=== PATIENT | male | born 1955 | race Caucasian/White ===

== ENCOUNTER 2016-11-15 14:04 | Observation (INO) ==
[2016-11-15] MEDS ORDERED: Albuterol 2.5 MG/3 ML NEBULIZER IH ONE (14:11)
[2016-11-15] MEDS ORDERED: Ipratropium/Albuterol Neb 3 ML IH ONE (14:11)
[2016-11-15] MEDS ORDERED: methylPREDNISolone 125 MG/2 ML VIAL IVP ONE (14:12)
[2016-11-15] MEDS ORDERED: Albuterol 2.5 MG/3 ML NEBULIZER ONE ×2 (14:15→16:22)
[2016-11-15] MEDS ORDERED: Ipratropium/Albuterol Neb 3 ML ONE ×2 (14:15→16:22)
--- NOTE | 2016-11-15 14:15 | Emergency Department Note ---
Disposition Clinical Impression: COPD exacerbation Pneumonia Qualifiers: Pneumonia type: due to unspecified organism Laterality: left Lung location: unspecified part of lung Qualified Code(s): J18.9 - Pneumonia, unspecified organism Disposition: Admitted As Inpatient Condition: Good Referrals: Dayday Ayala DO [Primary Care Provider] - Forms: ED Satisfaction Letter Time of Disposition: 15:41 SOB HPI - General Chief Complaint: ED Shortness of Breath/Dyspnea Stated Complaint: SOB Time Seen by Provider: 11/15/16 14:11 Source: patient Mode of arrival: ambulatory Limitations: no limitations Nursing Notes Reviewed: Yes Vital Signs Reviewed: Yes - History of Present Illness 60-year-old white male with a history of COPD who presents with a three-day history of cough and increased difficulty breathing. He states his cough is productive of some white sputum. He denies fever. No chest pain. He smokes a pack of cigarettes a day. He wears 3 L of oxygen continuously. Pt Subjective Complaint: shortness of breath, cough Onset (ago): day(s) (3) Context: recent illness Severity: moderate Consistency/Duration: constant Improves with: oxygen, rest Worsens with: exertion, coughing Known history of: COPD, asthma Associated symptoms: Reports: denies other symptoms Treatment prior to arrival: oxygen, bronchodilator Cough present: Yes Cough Description: Involuntary Cough Frequency: Intermittent Sputum production: Yes Sputum Amount: Scant Sputum Color: White - Related Data Home oxygen amount: 3 liters Home Medications Medication Instructions Recorded Confirmed Albuterol Neb [Proventil Neb] 2.5 mg IH Q4HR PRN 05/23/15 11/15/16 Albuterol Sulfate [Albuterol 2 puff IH Q4H PRN 05/23/15 11/15/16 Inhaler] Aspirin [Adult Low Dose Aspirin EC] 81 mg PO DAILY 05/23/15 11/15/16 Gabapentin [Neurontin] 800 mg PO TID 05/23/15 11/15/16 Hydrocodone/Acetaminophen [[place] 1 tab PO Q6H PRN 05/23/15 11/15/16 10-325 Tablet] Levothyroxine [Synthroid] 50 mcg PO DAILY 05/23/15 11/15/16 Loratadine [Claritin] 10 mg PO DAILY 05/23/15 11/15/16 Melatonin [Melatin] 3 mg PO HS 05/23/15 11/15/16 [place]-3S/Dha/Epa/Fish Oil [Fish 1 each PO DAILY 05/23/15 11/15/16 Oil 1,200 mg Softgel] Tiotropium [Spiriva] 18 mcg IH DAILY 05/23/15 11/15/16 Topiramate [Topamax] 25 mg PO HS 05/23/15 11/15/16 Cholecalciferol (D-3) [Vitamin D] 2,000 unit PO DAILY 06/04/16 11/15/16 Docusate [Colace] 100 mg PO DAILY PRN 06/04/16 11/15/16 diazePAM [Valium] 5 mg PO HS 06/04/16 11/15/16 Furosemide [Lasix] 40 mg PO DAILY 11/15/16 11/15/16 Allergies Allergy/AdvReac Type Severity Reaction Status Date / Time tramadol AdvReac Unknown TINGLING Verified 06/04/16 16:44 acetaminophen AdvReac Itching Verified 06/04/16 16:44 morphine AdvReac Hallucinati Verified 06/04/16 16:44 ng Oxycodone [From Percocet] AdvReac Anaphylaxis Verified 06/04/16 16:44 All systems ED: reviewed and negative except as stated. Constitutional: Denies: fever, chills Eyes: Denies: eye discharge ENT ED: Denies: ear pain, throat pain Cardiovascular: Denies: chest pain Respiratory: Reports: cough, dyspnea, wheezes, sputum production Gastrointestinal: Denies: abdominal pain, nausea, vomiting Genitourinary: Denies: urgency, dysuria, frequency Past Medical History - Past Medical History Medical history: Reports: COPD, diabetes, hyperlipidemia, thyroid disease Psychiatric history: Reports: no psych history - Social History Smoking Status: Current every day smoker Smokeless Tobacco Status: No Alcohol use: Reports: none Drug use: Reports: none Physical Exam - General Limitations: no limitations General appearance: alert, in no apparent distress - Head Head exam: atraumatic, normocephalic - Eye Eye exam: Present: PERRL, EOMI. Absent: scleral icterus, conjunctival injection - ENT ENT exam: normal oropharynx, mucous membranes moist, TM's normal bilaterally - Neck Neck exam: Present: normal inspection, full ROM, trachea midline. Absent: tenderness, lymphadenopathy - Respiratory Respiratory exam: Present: wheezes (Water bilateral expiratory), prolonged expiratory phase. Absent: respiratory distress, accessory muscle use - Cardiovascular Cardiovascular exam: Present: regular rate, normal rhythm, normal heart sounds - Abdominal Exam Abdominal exam: Present: soft, Non-Tender, other (Please). Absent: tenderness, distention, guarding - Extremities Exam Extremities exam: Present: normal inspection, other (1+ pitting pretibial edema) . Absent: calf tenderness - Neurological Exam Neurological exam: Present: alert, oriented X3, normal gait. Absent: motor sensory deficit - Psychiatric Psychiatric exam: Present: normal affect, normal mood - Skin Skin exam: Present: warm, dry, intact. Absent: cyanosis, diaphoresis Course - Reevaluation(s) Reevaluation #1: Patient clinically is improved. His O2 saturations are between 88 and 92% on 3 L. He is moving air better. I discussed with him his workup and clinical findings. He is agreeable with admission. I spoke with Dr. Gregory. He has accepted the patient for admission. Time: 15:39 Vital Signs Temperature 100.0 F H 11/15/16 14:06 Pulse Rate 79 11/15/16 14:06 Respiratory Rate 20 11/15/16 14:06 Blood Pressure 135/69 11/15/16 14:06 O2 Sat by Pulse Oximetry 83 11/15/16 14:06 Temperature 100.0 F H 11/15/16 14:06 Pulse Rate 79 11/15/16 14:06 Respiratory Rate 22 11/15/16 14:18 Blood Pressure 135/69 11/15/16 14:06 O2 Sat by Pulse Oximetry 84 11/15/16 14:18 Oxygen Delivery Oxygen Delivery Nasal Cannula Shortness of Breath/Dyspnea - Differential Diagnosis Likely: acute exacerbation of chronic obstructive airways disease, congestive heart failure, pneumonia, asthma with exacerbation, pulmonary embolism, pneumothorax, arrhythmia - Lab Data Lab results reviewed: Yes I reviewed the patient's lab results. Result diagrams: 11/15/16 14:24 11/15/16 14:24 Lab Results 11/15/16 11/15/16 11/15/16 Range/Units 14:24 14:24 14:24 WBC 10.2 (4.3-11.1) K/mcL RBC 4.35 (4.19-5.50) M/mcL Hgb 12.0 L (12.9-16.9) g/dL Hct 39.2 (37.5-50.1) % MCV 90.1 (83.0-100.0) fL MCH 27.6 L (28.0-33.3) pg MCHC 30.6 L (31.6-35.5) g/dL RDW 16.3 H (11.5-14.5) % Plt Count 255 (140-400) K/mcL MPV 8.8 L (9.4-12.4) fL Immature Gran % 0.4 (0-4) % Seg Neutrophils % 68.0 % Lymphocytes % 19.6 % Monocytes % 10.5 % Eosinophils % 1.1 % Basophils % 0.4 % Neutrophils # 7.0 (1.6-8.9) K/mcL Lymphocytes # 2.0 (0.6-4.6) K/mcL Monocytes # 1.1 (0.0-1.3) K/mcL Eosinophils # 0.1 (0.0-0.6) K/mcL Basophils # 0.0 (0.0-0.2) K/mcL Nucleated RBCs/100 WBC 0.4 H (0) /100 WBC VBG Lactic Acid (0.5-2.2) mmol/L Sodium 136 (136-145) mEq/L Potassium 3.6 (3.5-4.5) mEq/L Chloride 90 L (98-109) mEq/L Carbon Dioxide 33 H (19-29) mEq/L BUN 14 (8-26) mg/dL Creatinine 1.37 H (0.72-1.25) mg/dL Est GFR ( Amer) > 60 (> 60) Est GFR (Non-Af Amer) 53 L (> 60) BUN/Creatinine Ratio 10 (6-26) Glucose 188 H (70-99) mg/dL Calculated Osmolality 287 (280-300) Calcium 9.4 (8.6-10.8) mg/dL Total Bilirubin 0.3 (0.2-1.2) mg/dL AST 19 (5-34) Units/L ALT 22 (0-55) Units/L Alkaline Phosphatase 85 (38-126) Units/L Troponin I 0.04 H* (0-0.03) ng/mL B-Natriuretic Peptide (0-100) pg/mL Serum Total Protein 6.5 (6.0-8.3) g/dL Albumin 3.0 L (3.5-5.0) g/dL Globulin 3.5 (2.4-3.5) g/dL Albumin/Globulin Ratio 0.9 L (1.1-2.2) 11/15/16 11/15/16 Range/Units 14:24 14:24 WBC (4.3-11.1) K/mcL RBC (4.19-5.50) M/mcL Hgb (12.9-16.9) g/dL Hct (37.5-50.1) % MCV (83.0-100.0) fL MCH (28.0-33.3) pg MCHC (31.6-35.5) g/dL RDW (11.5-14.5) % Plt Count (140-400) K/mcL MPV (9.4-12.4) fL Immature Gran % (0-4) % Seg Neutrophils % % Lymphocytes % % Monocytes % % Eosinophils % % Basophils % % Neutrophils # (1.6-8.9) K/mcL Lymphocytes # (0.6-4.6) K/mcL Monocytes # (0.0-1.3) K/mcL Eosinophils # (0.0-0.6) K/mcL Basophils # (0.0-0.2) K/mcL Nucleated RBCs/100 WBC (0) /100 WBC VBG Lactic Acid 3.7 H (0.5-2.2) mmol/L Sodium (136-145) mEq/L Potassium (3.5-4.5) mEq/L Chloride (98-109) mEq/L Carbon Dioxide (19-29) mEq/L BUN (8-26) mg/dL Creatinine (0.72-1.25) mg/dL Est GFR ( Amer) (> 60) Est GFR (Non-Af Amer) (> 60) BUN/Creatinine Ratio (6-26) Glucose (70-99) mg/dL Calculated Osmolality (280-300) Calcium (8.6-10.8) mg/dL Total Bilirubin (0.2-1.2) mg/dL AST (5-34) Units/L ALT (0-55) Units/L Alkaline Phosphatase (38-126) Units/L Troponin I (0-0.03) ng/mL B-Natriuretic Peptide 760 H (0-100) pg/mL Serum Total Protein (6.0-8.3) g/dL Albumin (3.5-5.0) g/dL Globulin (2.4-3.5) g/dL Albumin/Globulin Ratio (1.1-2.2) - Radiology Data Radiology results reviewed: Yes I reviewed the patient's radiology results. ITS Impressions Chest X-Ray 11/15/16 14:11 IMPRESSION: Left perihilar airspace disease which may be due to pneumonia although follow-up to ensure resolution is recommended as a neoplastic etiology cannot be excluded. A chest x-ray in 3 weeks is recommended. D/ / Edmund Baca MD / Edmund Baca MD Interpreting Provider: Edmund Baca MD - EKG Data EKG attestation: Yes I reviewed and interpreted this EKG. EKG results narrative: Sinus rhythm, rate of 78, left atrial enlargement, nonspecific ST-T changes. Rhythm strip shows sinus rhythm with rate of 78, DC interval 138 ms, QRS 90 ms with no other ectopy as interpreted by me.
[2016-11-15 14:31] LABS: Basophils % 0.4 %; Eosinophils # 0.1 K/mcL (0.0-0.6); Eosinophils % 1.1 %; Hematocrit 39.2 % (37.5-50.1); Immature Granulocytes % 0.4 % (0-4); Lymphocytes % 19.6 %; Mean Corpuscular HGB Conc 30.6 g/dL (31.6-35.5); Mean Corpuscular Hemoglobin 27.6 pg (28.0-33.3); Mean Corpuscular Volume 90.1 fL (83.0-100.0); Mean Platelet Volume 8.8 fL (9.4-12.4); Monocytes # 1.1 K/mcL (0.0-1.3); Monocytes % 10.5 %; Nucleated Red Blood Cells 0.4 /100 WBC (0); Platelet Count 255 K/mcL (140-400); Red Blood Count 4.35 M/mcL (4.19-5.50); Red Cell Distribution Width 16.3 % (11.5-14.5)
[2016-11-15 14:49] LABS: Alanine Aminotransferase 22 Units/L (0-55); Albumin/Globulin Ratio 0.9 (1.1-2.2); Alkaline Phosphatase 85 Units/L (38-126); Aspartate Amino Transferase 19 Units/L (5-34); BUN/Creatinine Ratio 10 (6-26); Bilirubin,Total 0.3 mg/dL (0.2-1.2); Blood Urea Nitrogen 14 mg/dL (8-26); Calcium 9.4 mg/dL (8.6-10.8); Carbon Dioxide 33 mEq/L (19-29); Chloride 90 mEq/L (98-109); Globulin 3.5 g/dL (2.4-3.5); Glucose 188 mg/dL (70-99); Osmolality,Calculated 287 (280-300); Potassium 3.6 mEq/L (3.5-4.5); Sodium 136 mEq/L (136-145); Total Protein 6.5 g/dL (6.0-8.3); eGFR For African Americans > 60 (> 60); eGFR For Non-African Americans 53 (> 60)
[2016-11-15] MEDS ORDERED: Azithromycin 500 MG in D5% in Water 250 ML IVPB ONE (15:04)
[2016-11-15] MEDS ORDERED: Naloxone 0.4 MG/ML INJ IVP PRN (16:22)
[2016-11-15] MEDS ORDERED: methylPREDNISolone 125 MG/2 ML VIAL IVP SCH ×2 (16:22→22:30)
--- NOTE | 2016-11-15 19:03 | Internal Med History&Physical ---
Date of Encounter: 11/15/16 Time of Encounter: 18:25 Assessment and Plan (1) Pneumonia Current visit: Yes Status: Acute Chest x-ray showed probable airspace disease but WBC is normal with no left shift seen. We will proceed with CT of chest to further evaluate. He was started on Rocephin, Zithromax, and Solu-Medrol through emergency room. Qualifiers: Pneumonia type: due to unspecified organism Laterality: left Lung location: unspecified part of lung Qualified Code(s): J18.9 - Pneumonia, unspecified organism (2) Anemia Current visit: No Status: Acute We will order anemia testing in a.m. Qualifiers: Anemia type: unspecified type Qualified Code(s): D64.9 - Anemia, unspecified (3) CKD (chronic kidney disease) stage 3, GFR 30-59 ml/min Current visit: Yes Status: Acute Will monitor renal indices. (4) Hypertension Current visit: Yes Status: Chronic He does not know the name of his blood pressure medication. Will monitor BP. Qualifiers: Hypertension type: essential hypertension Qualified Code(s): I10 - Essential (primary) hypertension (5) Hypothyroidism Current visit: Yes Status: Acute We will check TSH in a.m. Qualifiers: Hypothyroidism type: unspecified Qualified Code(s): E03.9 - Hypothyroidism , unspecified (6) Diabetes mellitus Current visit: No Status: Chronic We will check hemoglobin A1c in a.m. 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 Qualifiers: COPD type: unspecified COPD Qualified Code(s): J44.9 - Chronic obstructive pulmonary disease, unspecified (8) Elevated brain natriuretic peptide (BNP) level Current visit: Yes Status: Acute We will give IV Lasix tonight and reevaluate tomorrow morning. Internal Medicine - H&P: HPI Chief complaint: Dyspnea Admitted From: Home Plans for Post Hospital Care: Home History of present illness: Mr. Williamson is a 60 year old male who came to the emergency room from his physician's office where he gone to pick up worker a prescription. He states he became very weak and fell to the floor. He was brought to emergency room and evaluated with CT scan showing left perihilar airspace disease. He was admitted to [facility] floor for ongoing care needs. He denies dyspnea at the present time. His respiratory history is significant for having smoked since age 5 up to 3 packs per day. He has a diagnosis of COPD and states PFTs were done approximately 10 years ago. He wears oxygen at home 24/ except when he smokes. He has been diagnosed with BALBINA but states he cannot tolerate the CPAP/BiPAP mask. Past Med Surg Social Fam HX - Past Medical History Medical history: COPD, hyperlipidemia, thyroid disease Psychiatric history: no psych history - Past Surgical History Surgical History: cholecystectomy - Social History Smoking Status: Current every day smoker Smokeless Tobacco Status: No Alcohol use: none Drug use: none - Family History Father Living Status: Hx Family Cancer: Yes (Lung) Hx Family Endocrine Disorder: Yes (Diabetes) Internal Medicine - H&P: Meds Albuterol Neb [Proventil Neb] 2.5 mg IH Q4HR PRN 05/23/15 [History] Albuterol Sulfate [Albuterol Inhaler] 2 puff IH Q4H PRN 05/23/15 [History] Aspirin [Adult Low Dose Aspirin EC] 81 mg PO DAILY 05/23/15 [History] Gabapentin [Neurontin] 800 mg PO TID 05/23/15 [History] Hydrocodone/Acetaminophen [[place] 10-325 Tablet] 1 tab PO Q6H PRN 05/23/15 [ History] Levothyroxine [Synthroid] 50 mcg PO DAILY 05/23/15 [History] Loratadine [Claritin] 10 mg PO DAILY 05/23/15 [History] Melatonin [Melatin] 3 mg PO HS 05/23/15 [History] [place]-3S/Dha/Epa/Fish Oil [Fish Oil 1,200 mg Softgel] 1 each PO DAILY 05/23/15 [ History] Tiotropium [Spiriva] 18 mcg IH DAILY 05/23/15 [History] Topiramate [Topamax] 25 mg PO HS 05/23/15 [History] Cholecalciferol (D-3) [Vitamin D] 2,000 unit PO DAILY 06/04/16 [History] Docusate [Colace] 100 mg PO DAILY PRN 06/04/16 [History] diazePAM [Valium] 5 mg PO HS 06/04/16 [History] Furosemide [Lasix] 40 mg PO DAILY 11/15/16 [History] Allergies tramadol Adverse Reaction (Unknown, Verified 06/04/16 16:44) TINGLING acetaminophen Adverse Reaction (Verified 06/04/16 16:44) Itching morphine Adverse Reaction (Verified 06/04/16 16:44) Hallucinating Oxycodone [From Percocet] Adverse Reaction (Verified 06/04/16 16:44) Anaphylaxis All Systems PM: A 10-system review of systems was performed and is negative for pertinent findings except as documented above in the HPI. Review of systems: Gen.: He states his weight has been stable the past few months Cardiovascular: He has a history of hypertension but denies MS heart failure angina DVT or pulmonary embolus. He claims he had a heart catheter several years ago at [facility] which showed no significant stenosis. Respiratory: As per history of present illness GI: He has had cholecystectomy. He claims he has NAFLD. He states he has not drunk alcohol in approximately 20 years. 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 He denies other kidney bladder prostate disorders Neurologic: He denies large distribution strokes or seizures Endocrine: He has a history of DM 2. His last hemoglobin A1c was 6.2% on 2015. He has history of hypothyroidism and hyperlipidemia Hematology/oncology: He and anemia on blood work emergency room. He was unaware of this. He denies internal malignancies Psychiatric: He denies anxiety depression or other mental health issues Musk skeletal: He has arthritis but denies gout or other bone joint or muscle disorders. - Constitutional Vitals: Temp Pulse Resp BP Pulse Ox 97.9 F 84 16 143/71 84 11/15/16 17:01 11/15/16 17:01 11/15/16 17:01 11/15/16 17:01 11/15/16 17:01 Exam: Gen.: He is well-developed obese male who appears in no acute distress. He denies dyspnea at this time HEENT: Head is atraumatic and normocephalic. Eyes: EOMI. There is no scleral icterus. Mouth: Mucosa is moist. Neck: Supple and nontender. There is no thyromegaly or adenopathy noted. Heart: Regular without murmurs gallops or ectopics Lungs: No wheezes or crackles are heard. He has diminished breath sounds diffusely. Abdomen: Soft and nontender. No masses or guarding noted. Extremities: There is no cyanosis or clubbing noted. He has trace to 1+ edema of the lower legs and dorsum of the feet bilaterally. Dorsalis pedis and posterior tibial pulses are nonpalpable. Neurologic: Mental status: He is talkative and a good historian. Cranial nerves : Smile is symmetric. Forehead wrinkles bilaterally. Tongue protrudes midline. EOMI. Motor: There is no pronator drift. Cerebellar: Finger to nose is intact bilaterally. Skin: Warm and dry Internal Med - H&P Results - Labs CBC & Chem 7: 11/15/16 14:24 11/15/16 14:24
[2016-11-15] MEDS ORDERED: Furosemide 40 MG in 0.9 % Sodium Chloride 50 ML IVPB SCH (19:30)
[2016-11-15] MEDS ORDERED: Ipratropium/Albuterol Neb 3 ML IH SCH (20:00)
[2016-11-15] MEDS ORDERED: diazePAM 5 MG TABLET PO SCH (21:00)
[2016-11-15] MEDS ORDERED: Gabapentin 400 MG CAPSULE PO SCH ×2 (21:00)
[2016-11-15] MEDS ORDERED: Topiramate 25 MG TABLET PO SCH (21:00)
[2016-11-15] MEDS ORDERED: Melatonin 3 MG TABLET PO SCH (21:00)
[2016-11-15] MEDS: Furosemide 40 MG/4 ML VIAL IVP SCH (21:39)
[2016-11-15] MEDS: Gabapentin 300 MG CAPSULE PO SCH (21:40)
[2016-11-15] MEDS: *HR* HYDROcodone/Acet 10/325 mg TABLET PO PRN (21:53)
[2016-11-16] MEDS: *HR* HYDROcodone/Acet 10/325 mg TABLET PO PRN ×2 (03:59→09:52)
[2016-11-16] MEDS ORDERED: *HR* Enoxaparin 40 MG/0.4 ML SYRINGE SQ SCH (06:00)
[2016-11-16 06:26] LABS: Basophils % 0.1 %; Hematocrit 38.8 % (37.5-50.1); Hemoglobin 11.9 g/dL (12.9-16.9); Lymphocytes # 0.9 K/mcL (0.6-4.6); Lymphocytes % 10.5 %; Mean Corpuscular HGB Conc 30.7 g/dL (31.6-35.5); Mean Corpuscular Hemoglobin 27.5 pg (28.0-33.3); Mean Corpuscular Volume 89.6 fL (83.0-100.0); Mean Platelet Volume 9.4 fL (9.4-12.4); Monocytes # 0.3 K/mcL (0.0-1.3); Monocytes % 4.2 %; Neutrophils # 6.8 K/mcL (1.6-8.9); Nucleated Red Blood Cells 0.6 /100 WBC (0); Platelet Count 262 K/mcL (140-400); Red Blood Count 4.33 M/mcL (4.19-5.50); Red Cell Distribution Width 16.2 % (11.5-14.5); Segmented Neutrophils % 84.2 %
[2016-11-16] MEDS ORDERED: Levothyroxine 25 MCG TABLET PO SCH (06:30)
[2016-11-16 06:43] LABS: BUN/Creatinine Ratio 15 (6-26); Blood Urea Nitrogen 17 mg/dL (8-26); Calcium 9.3 mg/dL (8.6-10.8); Carbon Dioxide 37 mEq/L (19-29); Chloride 89 mEq/L (98-109); Glucose 216 mg/dL (70-99); Osmolality,Calculated 294 (280-300); Potassium 4.2 mEq/L (3.5-4.5); Sodium 138 mEq/L (136-145); eGFR For African Americans > 60 (> 60); eGFR For Non-African Americans > 60 (> 60)
[2016-11-16 07:04] LABS: Thyroid Stimulating Hormone 0.758 mcIU/mL (0.350-4.840)
[2016-11-16] MEDS: Gabapentin 300 MG CAPSULE PO SCH (08:58)
[2016-11-16] MEDS: Furosemide 40 MG/4 ML VIAL IVP SCH (08:58)
[2016-11-16] MEDS ORDERED: DHA PO SCH (09:00)
[2016-11-16] MEDS ORDERED: Aspirin Enteric Coated 325 MG Tablet PO SCH (09:00)
[2016-11-16] MEDS ORDERED: Furosemide 40 MG TABLET PO SCH (09:00)
[2016-11-16] MEDS ORDERED: EPA PO SCH (09:00)
[2016-11-16] MEDS ORDERED: Loratadine 10 MG TABLET PO SCH (09:00)
[2016-11-16] MEDS ORDERED: Aspirin Enteric Coated 81 MG Tablet PO SCH (09:00)
[2016-11-16] MEDS ORDERED: Cholecalciferol (D-3) 1,000 UNIT TABLET PO SCH (09:00)
[2016-11-16] MEDS ORDERED: FISH OIL PO SCH (09:00)
[2016-11-16] MEDS ORDERED: OMEGA PO SCH (09:00)
[2016-11-16] MEDS ORDERED: *HR* Dextrose 50 % in Water (Syg) 50 ML SYRINGE IVP PRN (09:40)
[2016-11-16] MEDS ORDERED: Dextrose Gel 15 GM PO PRN ×2 (09:40)
[2016-11-16] MEDS ORDERED: D5% in Water 1,000 ML IVC PRN (09:40)
[2016-11-16 10:11] VITALS: BP 128/62
--- NOTE | 2016-11-16 10:25 | Discharge Summary ---
Date of Encounter: 11/16/16 Time of Encounter: 10:10 - Discharge Diagnosis (1) Pneumonia Priority: Primary Status: Acute Qualifiers: Pneumonia type: due to unspecified organism Laterality: left Lung location: unspecified part of lung Qualified Code(s): J18.9 - Pneumonia, unspecified organism (2) Anemia Priority: Secondary Status: Acute Qualifiers: Anemia type: unspecified type Qualified Code(s): D64.9 - Anemia, unspecified (3) CKD (chronic kidney disease) stage 3, GFR 30-59 ml/min Priority: Secondary Status: Chronic (4) Hypertension Priority: Secondary Status: Chronic Qualifiers: Hypertension type: essential hypertension Qualified Code(s): I10 - Essential (primary) hypertension (5) Hypothyroidism Priority: Secondary Status: Chronic Qualifiers: Hypothyroidism type: unspecified Qualified Code(s): E03.9 - Hypothyroidism , unspecified (6) Diabetes mellitus Priority: Secondary Status: Chronic Qualifiers: Diabetes mellitus type: type 2 Diabetes mellitus complication status: with unspecified complications 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 insulin use: without prison use Qualified Code(s): E11.8 - Type 2 diabetes mellitus with unspecified complications (7) COPD (chronic obstructive pulmonary disease) Priority: Secondary Status: Chronic Qualifiers: COPD type: unspecified COPD Qualified Code(s): J44.9 - Chronic obstructive pulmonary disease, unspecified (8) Elevated brain natriuretic peptide (BNP) level Priority: Secondary Status: Acute - Discharge Medications Prescriptions: Cefuroxime PO [Ceftin] 500 mg PO Q12HR #6 tablet Azithromycin [Zithromax] 250 mg PO DAILY #3 tablet Lactobacillus [Culturelle] 1 each PO BID #6 cap.sprink Home Medications: Albuterol Neb [Proventil Neb] 2.5 mg IH Q4HR PRN 05/23/15 [History] Albuterol Sulfate [Albuterol Inhaler] 2 puff IH Q4H PRN 05/23/15 [History] Aspirin [Adult Low Dose Aspirin EC] 325 mg PO DAILY 05/23/15 [History] Gabapentin [Neurontin] 800 mg PO TID 05/23/15 [History] Hydrocodone/Acetaminophen [[place] 10-325 Tablet] 1 tab PO Q6H PRN 05/23/15 [ History] Levothyroxine [Synthroid] 50 mcg PO DAILY 05/23/15 [History] Loratadine [Claritin] 10 mg PO DAILY 05/23/15 [History] Melatonin [Melatin] 5 mg PO HS 05/23/15 [History] [place]-3S/Dha/Epa/Fish Oil [Fish Oil 1,200 mg Softgel] 1 each PO DAILY 05/23/15 [ History] Tiotropium [Spiriva] 18 mcg IH DAILY 05/23/15 [History] Topiramate [Topamax] 25 mg PO HS 05/23/15 [History] Cholecalciferol (D-3) [Vitamin D] 2,000 unit PO DAILY 06/04/16 [History] Docusate [Colace] 100 mg PO DAILY PRN 06/04/16 [History] diazePAM [Valium] 5 mg PO HS 06/04/16 [History] Albuterol Sulfate [Ventolin Hfa] 90 mcg IH Q4HR PRN 11/15/16 [History] Metoprolol Tartrate [Lopressor] 25 mg PO QDPC 11/15/16 [History] Ondansetron ODT [Zofran ODT] 4 mg SL Q8HR PRN 11/15/16 [History] Polyethylene Glycol 3350 [Purelax] 17 gm PO QDPC 11/15/16 [History] metFORMIN [Glucophage] 500 mg PO BIDWM 11/15/16 [History] Azithromycin [Zithromax] 250 mg PO DAILY #3 tablet 11/16/16 [Rx] Cefuroxime PO [Ceftin] 500 mg PO Q12HR #6 tablet 11/16/16 [Rx] Furosemide [Lasix] 40 mg PO DAILY #0 11/16/16 [Rx] Lactobacillus [Culturelle] 1 each PO BID #6 cap.sprink 11/16/16 [Rx] hydroCHLOROthiazide [Hydrochlorothiazide] 12.5 mg PO DAILY #0 11/16/16 [Rx] Allergies/Adverse Reactions: Allergies tramadol Adverse Reaction (Unknown, Verified 06/04/16 16:44) TINGLING acetaminophen Adverse Reaction (Verified 06/04/16 16:44) Itching morphine Adverse Reaction (Verified 06/04/16 16:44) Hallucinating Oxycodone [From Percocet] Adverse Reaction (Verified 06/04/16 16:44) Anaphylaxis Procedures/tests Complete & Pending: Procedures Performed prior 72 hours Category Date Time Status CT chest wo con [CT] Routine Cat Scan 11/16/16 08:00 Draft Date of admission: 11/15/16 16:07 Primary care physician: Dayday Ayala DO - Patient Status Disposition: Home, Self-Care Condition: Good - Discharge Instructions Follow Up With: Dayday Ayala DO [Primary Care Provider] - 1 week - Diet and Activity Activity: resume usual activities as tolerated, wear oxygen at all times Hospital course: Mr. 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 He states he became very weak and fell to the floor. He was brought to emergency room and evaluated with CT scan showing left perihilar airspace disease. He was admitted to [facility] for ongoing care needs. Initial orders were written by the emergency room physician. I saw him on November 15 and performed a history and physical. He was started on Rocephin, Zithromax, and Solu-Medrol through emergency room. I ordered a chest CT to further evaluate. There was no obvious infiltrate seen. There was no significant pleural effusion present. There were some small nodules that were unchanged from 2009 CT. Follow-up CBC on November 16 showed the WBC normal but slight left shift present. He will continue with antibiotics and probiotics for 3 additional days after discharge. Anemia testing was ordered with most results pending at the time of discharge. BP remained satisfactory during hospital stay. He was given IV fluids and azotemia improved with creatinine decreasing to 1.14 by the day of discharge. I will reduce his HCTZ upon discharge and increase his Lasix to facilitate diuresis. Prednisone will not be continued and consideration for reduced dose of gabapentin could be done if edema does not improve. BN peptide decreased to 689. I saw him on November 16 his dyspnea was improved. He felt stable for discharge home which I felt was reasonable. He will follow with Dr. Ayala within 1 week. I encouraged him to become a nonsmoker. - Time Spent with Patient Total time spent providing and/or coordinating discharge services: - Constitutional Vitals: Temp Pulse Resp BP Pulse Ox 96.6 F L 72 15 128/62 94 11/16/16 10:07 11/16/16 10:11/16/16 09:17 11/16/16 10:07 11/16/16 10:07
[2016-11-16 10:28] LABS: % Iron Saturation 3 % (20-55); Iron 14 mcg/dL (65-175); Transferrin 314 mg/dL (174-364)
[2016-11-16 10:49] LABS: Ferritin 18 ng/ml (22-275)
[2016-11-16 10:59] LABS: Folate 14.7 ng/mL (7.0-31.4)
[2016-11-16] MEDS ORDERED: Insulin LISPRO 300 UNITS/3 ML VIAL SQ SCH ×2 (11:30→21:00)
[2016-11-16] MEDS ORDERED: Azithromycin 500 MG in D5% in Water 250 ML IVPB SCH (16:00)
--- NOTE | 2016-11-16 23:46 | Electrocardiograph Report ---
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
== END 2016-11-16 11:12 | disposition home or self-care (01) ==
LOC: EMEROOPIK 14:04 → INPPIK 14:04
PROVIDERS: ADMIT Internal Medicine; ATTEND Internal Medicine

== ENCOUNTER 2017-08-13 10:18 | Observation (INO) ==
--- NOTE | 2017-08-13 10:30 | Emergency Department Note ---
Disposition Clinical Impression: CHF (congestive heart failure) Qualifiers: Qualified Code(s): I50.31 - Acute diastolic (congestive) heart failure Acute and chronic respiratory failure Qualifiers: Respiratory failure complication: hypoxia and hypercapnia Qualified Code(s): J96.21 - Acute and chronic respiratory failure with hypoxia Disposition: Admitted As Inpatient Condition: Fair Time of Disposition: 12:30 (admit/transfer) SOB HPI - General Chief Complaint: UC Shortness of Breath Stated Complaint: short of breath Time Seen by Provider: 08/13/17 10:29 Source: patient, family Mode of arrival: private vehicle Limitations: no limitations, physical limitation Nursing Notes Reviewed: Yes Vital Signs Reviewed: Yes - History of Present Illness Patient presents to the ED complaining of worsening shortness of breath for 4 weeks. He reports a productive cough of white, yellow and brown sputum. He reports rhinorrhea and congestion but no sneezing. Subjective chills but no fever. Denies any chest pain. states his legs appear swollen. Patient has been to [facility] urgent care twice with most recent visit last week. He was diagnosed with a COPD exacerbation and was given a shot of antibiotics and a shot of steroids at urgent care. He was prescribed Keflex and a steroid taper. He has finished the taper but is still on Keflex. States they did not perform a chest x-ray urgent care. He has not seen his primary care doctor since late June but does have an appointment on August 19. He wears home oxygen at 2 L as needed but has been wearing it more frequently since he has been feeling bad. He has a history of COPD, CHF, diabetes, hypertension and hypothyroidism. He is on Spiriva and does 3 nebulizer treatments every day. He continues to smoke but states it is only 1 cigarette per day. Denies any recent travel or sick contacts. He does express concern that he could have the flu or pneumonia. On arrival to the ED he was 74% on 2 L after walking in from the parking lot. After resting in bed oxygen saturations have improved to 95% on 2 L. He does report increased dyspnea with exertion. - Related Data Home Medications Medication Instructions Recorded Confirmed Albuterol Neb [Proventil Neb] 2.5 mg IH Q4HR PRN 05/23/15 06/04/17 Albuterol Sulfate [Albuterol 2 puff IH Q4H PRN 05/23/15 06/04/17 Inhaler] Aspirin [Adult Low Dose Aspirin EC] 325 mg PO DAILY 05/23/15 06/04/17 Gabapentin [Neurontin] 800 mg PO TID 05/23/15 06/04/17 Hydrocodone/Acetaminophen [[place] 1 tab PO Q8H PRN 05/23/15 06/04/17 10-325 Tablet] Levothyroxine [Synthroid] 50 mcg PO DAILY 05/23/15 06/04/17 Loratadine [Claritin] 10 mg PO DAILY 05/23/15 06/04/17 Melatonin [Melatin] 5 mg PO HS 05/23/15 06/04/17 [place]-3S/Dha/Epa/Fish Oil [Fish 1 cap PO DAILY 05/23/15 06/04/17 Oil 1,200 mg Softgel] Tiotropium [Spiriva] 18 mcg IH DAILY 05/23/15 08/13/17 Topiramate [Topamax] 25 mg PO HS 05/23/15 08/13/17 Cholecalciferol (D-3) [Vitamin D] 2,000 unit PO DAILY 06/04/16 06/04/17 Docusate [Colace] 100 mg PO DAILY PRN 06/04/16 06/04/17 Ondansetron ODT [Zofran ODT] 4 mg SL Q8HR PRN 11/15/16 06/04/17 Polyethylene Glycol 3350 [Purelax] 17 gm PO QDPC 11/15/16 06/04/17 Ranitidine HCl [Acid Product Design Specialist] 150 mg PO Q8H 03/09/17 08/13/17 hydroCHLOROthiazide 25 mg PO DAILY 03/09/17 08/13/17 [Hydrochlorothiazide] Metoprolol XL (24 HR) Succ [Toprol 25 mg PO DAILY 03/10/17 06/04/17 Xl] Fexofenadine HCl [Allergy Relief] 180 mg PO DAILY 06/04/17 06/04/17 Furosemide [Lasix] 40 mg PO DAILY 06/04/17 06/04/17 diazePAM [Valium] 5 mg PO BID 06/04/17 08/13/17 Previous Rx's Medication Instructions Recorded Insulin ASPART [Novolog Flexpen] 100 unit SQ TIDWM 5 Days #1 06/06/17 insuln.pen predniSONE [PredniSONE] 40 mg PO DAILY #4 tablet 06/06/17 Allergies Allergy/AdvReac Type Severity Reaction Status Date / Time Oxycodone [From Percocet] Allergy Anaphylaxis Verified 06/04/17 11:31 tramadol AdvReac Unknown [place] Verified 06/04/17 00:01 acetaminophen AdvReac Itching Verified 06/04/17 00:01 morphine AdvReac Hallucinati Verified 06/04/17 00:01 ng Constitutional: Reports: chills. Denies: fever, weakness, weight change Eyes: Denies: eye pain, eye discharge, vision change ENT ED: Reports: congestion. Denies: ear pain, throat pain, dental pain, hearing loss, epistaxis, dysphagia Cardiovascular: Reports: dyspnea on exertion, edema. Denies: chest pain, palpitations, syncope Respiratory: Reports: cough, dyspnea, sputum production. Denies: wheezes, hemoptysis, stridor Gastrointestinal: Denies: abdominal pain, nausea, vomiting, diarrhea, constipation, hematemesis, melena, hematochezia Genitourinary: Denies: urgency, dysuria, frequency, hematuria Musculoskeletal: Denies: back pain, neck pain, arthralgia, myalgia Integumentary: Denies: rash, abrasion, lesions Neurological: Denies: headache, weakness, numbness, paresthesias, confusion, abnormal gait, vertigo Psychiatric: Denies: anxiety, depression, suicidal thoughts, homicidal thoughts , auditory hallucinations, visual hallucinations Endocrine: Denies: fatigue Hematological/Lymphatic: Denies: easy bleeding, easy bruising Allergic/Immunologic: Denies: facial swelling, urticaria Past Medical History - Past Medical History Medical history: Reports: CHF, COPD, GERD, hyperlipidemia, hypertension, renal disease, thyroid disease Surgical history: Reports: cholecystectomy Psychiatric history: Reports: no psych history - Social History Smoking Status: Current some day smoker Smokeless Tobacco Status: No Alcohol use: Reports: none Drug use: Reports: none Physical Exam - General Limitations: no limitations, physical limitation General appearance: alert, in no apparent distress, obese - Head Head exam: atraumatic, normocephalic, normal inspection - Eye Eye exam: Present: normal appearance, PERRL, EOMI - ENT ENT exam: normal exam, normal oropharynx, mucous membranes moist, TM's normal bilaterally, normal external ear exam - Neck Neck exam: Present: normal inspection, full ROM, trachea midline - Chest Chest inspection: Present: normal inspection, symmetric chest wall rise - Respiratory Respiratory exam: Absent: respiratory distress - Expanded Respiratory Exam Location: wheezes: Left, Right, Upper, Lower (scattered expiratory), decreased breath sounds: Left, Right, Upper, Lower (tight throughout) - Cardiovascular Cardiovascular exam: Present: regular rate, normal rhythm, normal heart sounds - Abdominal Exam Abdominal exam: Present: soft, Non-Tender. Absent: tenderness, distention, guarding, rebound, rigidity - Extremities Exam Extremities exam: Present: normal inspection, full ROM, pedal edema (1+ bilaterally to mid [place]o). Absent: tenderness - Back Exam Back exam: Present: normal inspection, full ROM. Absent: tenderness - Neurological Exam Neurological exam: Present: alert, oriented X3 - Psychiatric Psychiatric exam: Present: normal affect, normal mood - Skin Skin exam: Present: warm, dry, intact, normal color Course Course Narrative: Patient presents with increasing shortness of breath for 4 weeks as well as a productive cough and subjective chills with recent antibiotic and steroid use for COPD exacerbation. He had significant desaturations with ambulation/ exertion on arrival. He has poor air movement throughout but is not in acute distress. Will give nebulizer treatment and steroids. Will obtain chest x-ray , EKG and lab work to evaluate further for COPD exacerbation versus pneumonia versus influenza versus CHF exacerbation. - Reevaluation(s) Reevaluation #1: Chest x-ray shows pulmonary edema. Laboratory studies are notable for elevated CO2 of 48, BNP of 1078 and a troponin of 0.1. This is all consistent with patient having a CHF exacerbation likely causing some right heart strain. EKG shows just a sinus rhythm with sinus arrhythmia but no ischemic changes. Patient has been given a dose of IV Lasix. Discussed with patient the need for admission and he is in agreement. I spoke to the hospitalist on-call, Dr. Gregory. He requested a repeat troponin and EKG on the patient if these are stable and not trending upwards he is comfortable admitting the patient here for the CHF exacerbation. Obviously if he has the upper trending troponin or EKG changes he will need to be transferred to another facility where he can also be evaluated by cardiology. Patient is not in any acute respiratory distress and does not require BiPAP at this time although he has required this in the past. Time: 12:50 Reevaluation #2: Repeat EKG is unchanged and does not show any ischemic changes. Repeat troponin is stable at 0.1. Patient will be admitted to Dr. Gregory. Time: 13:44 Vital Signs Temperature 98.1 F 08/13/17 10:19 Pulse Rate 85 08/13/17 10:19 Respiratory Rate 24 08/13/17 10:19 Blood Pressure 144/70 08/13/17 10:19 O2 Sat by Pulse Oximetry 74 08/13/17 10:19 Temperature 97.7 F 08/14/17 00:00 Pulse Rate 65 08/14/17 00:00 Respiratory Rate 16 08/14/17 00:39 Blood Pressure 105/54 08/14/17 00:00 O2 Sat by Pulse Oximetry 92 08/14/17 00:39 Oxygen Delivery Oxygen Delivery Nasal Cannula Shortness of Breath/Dyspnea - Differential Diagnosis Likely: acute exacerbation of chronic obstructive airways disease, congestive heart failure, pneumonia - Medical Records Medical records reviewed: Yes I reviewed the patient's medical records. - Lab Data Lab results reviewed: Yes I reviewed the patient's lab results. Result diagrams: 08/13/17 11:09 08/13/17 11:09 Lab Results 08/13/17 08/13/17 08/13/17 Range/Units 11:09 11:09 11:09 WBC 12.5 H (4.3-11.1) K/mcL RBC 5.54 H (4.19-5.50) M/mcL Hgb 14.2 (12.9-16.9) g/dL Hct 48.9 (37.5-50.1) % MCV 88.3 (83.0-100.0) fL MCH 25.6 L (28.0-33.3) pg MCHC 29.0 L (31.6-35.5) g/dL RDW 18.4 H (11.5-14.5) % Plt Count 305 (140-400) K/mcL MPV 9.2 L (9.4-12.4) fL Immature Gran % 0.8 (0-4) % Seg Neutrophils % 82.0 % Lymphocytes % 8.8 % Monocytes % 7.7 % Eosinophils % 0.3 % Basophils % 0.4 % Neutrophils # 10.3 H (1.6-8.9) K/mcL Lymphocytes # 1.1 (0.6-4.6) K/mcL Monocytes # 1.0 (0.0-1.3) K/mcL Eosinophils # 0.0 (0.0-0.6) K/mcL Basophils # 0.1 (0.0-0.2) K/mcL Nucleated RBCs/100 WBC 1.1 H (0) /100 WBC Sample Site ABG pH (7.32-7.45) pH Units ABG pCO2 (35-45) mmHg ABG pO2 (85-104) mmHg ABG HCO3 (21-27) mEq/L ABG Total CO2 (20-26) mEq/L ABG O2 Saturation (95-98) % ABG Base Excess (-2 to 3) mEq/L Chito Test O2 Delivery Device Blood Gas Modality Sodium 137 (136-145) mEq/L Potassium 3.6 (3.5-5.1) mEq/L Chloride 83 L (98-107) mEq/L Carbon Dioxide 48 H* (23-29) mEq/L BUN 20 (8-23) mg/dL Creatinine 0.93 (0.70-1.30) mg/dL Est GFR ( Amer) > 60 (> 60) Est GFR (Non-Af Amer) > 60 (> 60) BUN/Creatinine Ratio 22 (6-26) Glucose 183 H (70-105) mg/dL Calculated Osmolality 291 (280-300) Lactic Acid 1.7 (0.5-2.2) mmol/L Calcium 9.8 (8.6-10.3) mg/dL Troponin I 0.10 H* (< 0.04) ng/mL B-Natriuretic Peptide (Less than 100) pg/mL 08/13/17 08/13/17 08/13/17 Range/Units 11:09 12:27 13:10 WBC (4.3-11.1) K/mcL RBC (4.19-5.50) M/mcL Hgb (12.9-16.9) g/dL Hct (37.5-50.1) % MCV (83.0-100.0) fL MCH (28.0-33.3) pg MCHC (31.6-35.5) g/dL RDW (11.5-14.5) % Plt Count (140-400) K/mcL MPV (9.4-12.4) fL Immature Gran % (0-4) % Seg Neutrophils % % Lymphocytes % % Monocytes % % Eosinophils % % Basophils % % Neutrophils # (1.6-8.9) K/mcL Lymphocytes # (0.6-4.6) K/mcL Monocytes # (0.0-1.3) K/mcL Eosinophils # (0.0-0.6) K/mcL Basophils # (0.0-0.2) K/mcL Nucleated RBCs/100 WBC (0) /100 WBC Sample Site R Radial ABG pH 7.40 (7.32-7.45) pH Units ABG pCO2 80 H* (35-45) mmHg ABG pO2 60 L (85-104) mmHg ABG HCO3 50 H (21-27) mEq/L ABG Total CO2 52 H (20-26) mEq/L ABG O2 Saturation 89 L (95-98) % ABG Base Excess 19 H (-2 to 3) mEq/L Chito Test Positive O2 Delivery Device Cannula Blood Gas Modality nc Sodium (136-145) mEq/L Potassium (3.5-5.1) mEq/L Chloride (98-107) mEq/L Carbon Dioxide (23-29) mEq/L BUN (8-23) mg/dL Creatinine (0.70-1.30) mg/dL Est GFR ( Amer) (> 60) Est GFR (Non-Af Amer) (> 60) BUN/Creatinine Ratio (6-26) Glucose (70-105) mg/dL Calculated Osmolality (280-300) Lactic Acid (0.5-2.2) mmol/L Calcium (8.6-10.3) mg/dL Troponin I 0.10 H* (< 0.04) ng/mL B-Natriuretic Peptide 1078 H (Less than 100) pg/mL - Radiology Data Radiology results reviewed: Yes I reviewed the patient's radiology results. ITS Impressions Chest X-Ray 08/13/17 10:46 IMPRESSION: 1. Stable pulmonary edema. 2. Calcified left pleural plaques, unchanged. This may be related to prior trauma/surgery. D/ / 08/13/2017 11:12:39 Clarence Christina MD / [email or web address] Interpreting Provider: Clarence Christina MD - EKG Data EKG attestation: Yes I reviewed and interpreted this EKG. EKG shows normal: Reports: sinus rhythm Rate: Reports: normal Rhythm: Reports: arrhythmia (sinus) [place]/QRS: Reports: normal When compared to previous EKG there are: no significant changes Interpretation: Reports: no acute changes
[2017-08-13] MEDS ORDERED: methylPREDNISolone 125 MG/2 ML VIAL IVP ONE (10:46)
[2017-08-13] MEDS ORDERED: Ipratropium/Albuterol Neb 3 ML IH ONE (10:46)
[2017-08-13 11:16] LABS: Basophils # 0.1 K/mcL (0.0-0.2); Basophils % 0.4 %; Eosinophils % 0.3 %; Hematocrit 48.9 % (37.5-50.1); Hemoglobin 14.2 g/dL (12.9-16.9); Immature Granulocytes % 0.8 % (0-4); Lymphocytes # 1.1 K/mcL (0.6-4.6); Lymphocytes % 8.8 %; Mean Corpuscular Hemoglobin 25.6 pg (28.0-33.3); Mean Corpuscular Volume 88.3 fL (83.0-100.0); Mean Platelet Volume 9.2 fL (9.4-12.4); Monocytes % 7.7 %; Nucleated Red Blood Cells 1.1 /100 WBC (0); Platelet Count 305 K/mcL (140-400); Red Blood Count 5.54 M/mcL (4.19-5.50); Red Cell Distribution Width 18.4 % (11.5-14.5)
[2017-08-13 11:18] LABS: Neutrophils # 10.3 K/mcL (1.6-8.9)
[2017-08-13 11:40] LABS: BUN/Creatinine Ratio 22 (6-26); Blood Urea Nitrogen 20 mg/dL (8-23); Calcium 9.8 mg/dL (8.6-10.3); Chloride 83 mEq/L (98-107); Glucose 183 mg/dL (70-105); Osmolality,Calculated 291 (280-300); Potassium 3.6 mEq/L (3.5-5.1); Sodium 137 mEq/L (136-145); eGFR For African Americans > 60 (> 60); eGFR For Non-African Americans > 60 (> 60)
[2017-08-13 11:43] LABS: Carbon Dioxide 48 mEq/L (23-29)
[2017-08-13] MEDS ORDERED: Furosemide 40 MG/4 ML VIAL IVP ONE (11:47)
[2017-08-13 12:31] LABS: ABG Base Excess 19 mEq/L (-2 to 3); ABG HCO3 50 mEq/L (21-27); ABG Oxygen Saturation 89 % (95-98); ABG PCO2 80 mmHg (35-45); ABG PO2 60 mmHg (85-104); ABG TCO2 52 mEq/L (20-26); Blood Gas Modality nc
[2017-08-13] MEDS ORDERED: Naloxone 0.4 MG/ML INJ IVP PRN ×2 (14:20→14:45)
[2017-08-13] MEDS ORDERED: Dextrose Gel 15 GM PO PRN ×4 (14:24→14:45)
[2017-08-13] MEDS ORDERED: D5% in Water 1,000 ML IVC PRN ×2 (14:24→14:45)
[2017-08-13] MEDS ORDERED: *HR* Dextrose 50 % in Water (Syg) 50 ML SYRINGE IVP PRN ×2 (14:24→14:45)
[2017-08-13] MEDS ORDERED: Famotidine 20 MG TABLET PO SCH (14:45)
--- NOTE | 2017-08-13 15:14 | Internal Med History&Physical ---
Date of Encounter: 08/13/17 Time of Encounter: 14:40 Assessment and Plan (1) COPD exacerbation Current visit: No Status: Acute He will be started on IV Rocephin and Zithromax. He was given Solu-Medrol in emergency room. (2) Elevated brain natriuretic peptide (BNP) level Current visit: No Status: Acute Echocardiogram May 2017 showed normal LVEF. Will continue Lasix, HCTZ, and Toprol. (3) Hypertension Current visit: No Status: Chronic Continue HCTZ, Lasix, and Toprol. Qualifiers: Hypertension type: essential hypertension Qualified Code(s): I10 - Essential (primary) hypertension (4) Hypothyroidism Current visit: No Status: Chronic TSH was normal at 0.758 on 11/16/2016. We will recheck in a.m. since he has had weight loss. Qualifiers: Hypothyroidism type: unspecified Qualified Code(s): E03.9 - Hypothyroidism , unspecified Internal Medicine - H&P: HPI Chief complaint: Cough and dyspnea Admitted From: Emergency Dept Plans for Post Hospital Care: Home History of present illness: Mr. Williamson is a 61 year old male who came to emergency room stating he had cough productive of occasional yellow and brown sputum onset approximately 4 weeks ago. He has had dyspnea on exertion. He has been to [facility] urgent care twice and received antibiotics and steroids. He did not feel improved so came to emergency room today. He was evaluated and felt to have exacerbation of COPD with possible superimposed heart failure. He was admitted to [facility] floor for ongoing care needs. His respiratory history is significant for having smoked since age 5 up to 3 packs per day. He has a diagnosis of COPD and states PFTs were done approximately 2006. He has recently decreased oxygen use from 24/7 to only at bedtime and when necessary during the daytime. He has been diagnosed with BALB[place] but states he cannot tolerate CPAP/BiPAP mask. Past Med Surg Social Fam HX - Past Medical History Medical history: CHF, COPD, GERD, hyperlipidemia, hypertension, renal disease, thyroid disease Psychiatric history: no psych history - Past Surgical History Surgical History: cholecystectomy - Social History Smoking Status: Current some day smoker Smokeless Tobacco Status: No Alcohol use: none Drug use: none - Family History Father Living Status: Hx Family Cardiac Disorders: Yes Hx Family Cancer: Yes (Lung) Hx Family Endocrine Disorder: Yes (Diabetes) Brother Hx Family Respiratory Disorders: Yes (COPD) Mother Hx Family Cardiac Disorders: Yes Internal Medicine - H&P: Meds Albuterol Neb [Proventil Neb] 2.5 mg IH Q4HR PRN 05/23/15 [History] Albuterol Sulfate [Albuterol Inhaler] 2 puff IH Q4H PRN 05/23/15 [History] Aspirin [Adult Low Dose Aspirin EC] 325 mg PO DAILY 05/23/15 [History] Gabapentin [Neurontin] 800 mg PO TID 05/23/15 [History] Hydrocodone/Acetaminophen [[place] 10-325 Tablet] 1 tab PO Q8H PRN 05/23/15 [ History] Levothyroxine [Synthroid] 50 mcg PO DAILY 05/23/15 [History] Loratadine [Claritin] 10 mg PO DAILY 05/23/15 [History] Melatonin [Melatin] 5 mg PO HS 05/23/15 [History] [place]-3S/Dha/Epa/Fish Oil [Fish Oil 1,200 mg Softgel] 1 cap PO DAILY 05/23/15 [ History] Tiotropium [Spiriva] 18 mcg IH DAILY 05/23/15 [History] Topiramate [Topamax] 25 mg PO HS 05/23/15 [History] Cholecalciferol (D-3) [Vitamin D] 2,000 unit PO DAILY 06/04/16 [History] Docusate [Colace] 100 mg PO DAILY PRN 06/04/16 [History] Ondansetron ODT [Zofran ODT] 4 mg SL Q8HR PRN 11/15/16 [History] Polyethylene Glycol 3350 [Purelax] 17 gm PO QDPC 11/15/16 [History] Ranitidine HCl [Acid Medical Office Rep] 150 mg PO Q8H 03/09/17 [History] hydroCHLOROthiazide [Hydrochlorothiazide] 25 mg PO DAILY 03/09/17 [History] Metoprolol XL (24 HR) Succ [Toprol Xl] 25 mg PO DAILY 03/10/17 [History] Fexofenadine HCl [Allergy Relief] 180 mg PO DAILY 06/04/17 [History] Furosemide [Lasix] 40 mg PO DAILY 06/04/17 [History] diazePAM [Valium] 5 mg PO BID 06/04/17 [History] Insulin ASPART [Novolog Flexpen] 100 unit SQ TIDWM 5 Days #1 insuln.pen [Rx] predniSONE [PredniSONE] 40 mg PO DAILY #4 tablet 06/06/17 [Rx] 3 Allergy/AdvReac Type Severity Reaction Status Date / Time Oxycodone [From Percocet] Allergy Anaphylaxis Verified 06/04/17 11:31 tramadol AdvReac Unknown [place] Verified 06/04/17 00:01 acetaminophen AdvReac Itching Verified 06/04/17 00:01 morphine AdvReac Hallucinati Verified 06/04/17 00:01 ng All Systems PM: A 10-system review of systems was performed and is negative for pertinent findings except as documented above in the HPI. Review of systems: Review of systems from his November 2016 [facility] hospitalization were reviewed and revised as below. Gen.: His weight has decreased from 115.33 kg on 11/16/2016 to a weight of 108.409 kg now. He states the weight loss was intentional Cardiovascular: He has a history of hypertension but denies RI heart failure angina DVT or pulmonary embolus. He claims he had a heart catheter several years ago at [facility] which showed no significant stenosis. An echocardiogram 06/04 showed LVEF of 60% with reported mild mitral regurgitation and tricuspid regurgitation. There was reported mild LV diastolic dysfunction although the E/ A ratio was 0.9. The estimated RVSP is slightly elevated at 40 mmHg. Respiratory: As per history of present illness GI: He has had cholecystectomy. He claims he has NAFLD. He states he has not drunk alcohol in approximately 20 years. He denies other disorders of his liver or exocrine pancreas : Has chronic kidney disease and follows with a [place] [employer]. He denies other kidney bladder or prostate disorders Neurologic: He denies large distribution strokes or seizures. He states he has been diagnosed with early Parkinson's disease. Endocrine: He states he was diagnosed with DM 2 approximately 2002. His last hemoglobin A1c was 7.0% on 11/16/2016. He has history of hypothyroidism and hyperlipidemia Hematology/oncology: He had anemia on blood work in emergency room November 2016 but that has resolved. He denies internal malignancies Psychiatric: He denies anxiety depression or other mental health issues Musk skeletal: He has arthritis but denies gout or other bone joint or muscle disorders. - Constitutional Vitals: Temp Pulse Resp BP Pulse Ox 98.1 F 87 18 126/56 98 08/13/17 10:19 08/13/17 14:19 08/13/17 14:19 08/13/17 14:19 08/13/17 14:19 Exam: Gen.: He is a well-developed overweight male sitting on the side of bed who appears in no acute distress HEENT: Head is atraumatic and normocephalic. Eyes: EOMI. There is no scleral icterus. Mouth: Mucosa is moist. Neck: Supple and nontender. There is no thyromegaly or adenopathy noted. Heart: Regular without murmurs gallops or ectopics. Lungs: No wheezes or crackles are heard. Abdomen: Soft and nontender. No masses or guarding are noted. Extremities: There is no cyanosis edema or clubbing noted. Dorsalis pedis and posterior tibial pulses are trace to 1+ palpable bilaterally. His feet are warm to touch. Neurologic: Mental status: He is talkative and a good historian. Cranial nerves : Smile is symmetric. Forehead wrinkles bilaterally. Tongue protrudes midline. EOMI. Motor: There is no pronator drift. Cerebellar: Finger to nose is intact bilaterally. Skin: Warm and dry Internal Med - H&P Results - Labs CBC & Chem 7: 08/13/17 11:09 08/13/17 11:09 - VTE Reasons for not Prescribing Prophylaxis: Treatment not Indicated - Low risk for VTE
[2017-08-13] MEDS ORDERED: Doxycycline 100 MG in 0.9 % Sodium Chloride Mini Bag 100 ML IVPB SCH (16:00)
[2017-08-13] MEDS ORDERED: cefTRIAXone 1,000 MG in Water for inj. (sterile) 20 ML 10 ML IVP SCH (16:00)
[2017-08-13] MEDS ORDERED: Insulin LISPRO 300 UNITS/3 ML VIAL SQ SCH ×3 (16:30→21:00)
[2017-08-13] MEDS: Albuterol 2.5 MG/3 ML NEBULIZER IH PRN ×2 (17:39→21:16)
[2017-08-13] MEDS: diazePAM 5 MG TABLET PO SCH (20:58)
[2017-08-13] MEDS: Lactobacillus 1 EACH CAP.SPRINK PO SCH (20:58)
[2017-08-13] MEDS: Gabapentin 400 MG CAPSULE PO SCH (21:00)
[2017-08-13] MEDS ORDERED: Topiramate 25 MG TABLET PO SCH (21:00)
[2017-08-14] MEDS: Albuterol 2.5 MG/3 ML NEBULIZER IH PRN ×2 (00:39→11:40)
[2017-08-14] MEDS ORDERED: Doxycycline 100 MG in 0.9 % Sodium Chloride Mini Bag 100 ML IVPB SCH (04:00)
[2017-08-14 05:59] LABS: Basophils % 0.2 %; Eosinophils % 0.1 %; Hematocrit 46.7 % (37.5-50.1); Hemoglobin 13.8 g/dL (12.9-16.9); Immature Granulocytes % 0.5 % (0-4); Lymphocytes # 2.5 K/mcL (0.6-4.6); Lymphocytes % 22.5 %; Mean Corpuscular HGB Conc 29.6 g/dL (31.6-35.5); Mean Corpuscular Hemoglobin 25.7 pg (28.0-33.3); Mean Corpuscular Volume 86.8 fL (83.0-100.0); Mean Platelet Volume 10.3 fL (9.4-12.4); Monocytes # 1.2 K/mcL (0.0-1.3); Monocytes % 11.2 %; Neutrophils # 7.1 K/mcL (1.6-8.9); Nucleated Red Blood Cells 0.6 /100 WBC (0); Platelet Count 241 K/mcL (140-400); Red Blood Count 5.38 M/mcL (4.19-5.50); Red Cell Distribution Width 18.6 % (11.5-14.5); Segmented Neutrophils % 65.5 %
[2017-08-14] MEDS ORDERED: Levothyroxine 25 MCG TABLET PO SCH (06:30)
[2017-08-14 07:15] LABS: BUN/Creatinine Ratio 32 (6-26); Blood Urea Nitrogen 32 mg/dL (8-23); Calcium 9.5 mg/dL (8.6-10.3); Chloride 83 mEq/L (98-107); Glucose 124 mg/dL (70-105); Magnesium 2.2 mg/dL (1.6-2.6); Osmolality,Calculated 288 (280-300); Potassium 3.5 mEq/L (3.5-5.1); Sodium 135 mEq/L (136-145); eGFR For African Americans > 60 (> 60); eGFR For Non-African Americans > 60 (> 60)
[2017-08-14 07:17] LABS: Carbon Dioxide 46 mEq/L (23-29)
[2017-08-14 07:33] LABS: Thyroid Stimulating Hormone 1.266 mcIU/mL (0.340-5.600)
[2017-08-14] MEDS: Insulin LISPRO 300 UNITS/3 ML VIAL SQ SCH ×3 (08:05→11:43)
[2017-08-14] MEDS ORDERED: Metoprolol XL (24 HR) Succ 25 MG TAB.ER.24H PO SCH (09:00)
[2017-08-14] MEDS ORDERED: Furosemide 40 MG TABLET PO SCH (09:00)
[2017-08-14] MEDS ORDERED: Tiotropium 18 MCG inhalation IH SCH (09:00)
[2017-08-14] MEDS ORDERED: hydroCHLOROthiazide 25 MG TABLET PO SCH (09:00)
[2017-08-14] MEDS: diazePAM 5 MG TABLET PO SCH (09:40)
[2017-08-14] MEDS: Lactobacillus 1 EACH CAP.SPRINK PO SCH (09:40)
[2017-08-14] MEDS: Gabapentin 400 MG CAPSULE PO SCH (09:40)
[2017-08-14 12:38] VITALS: BP 99/61
--- NOTE | 2017-08-14 14:41 | Discharge Summary ---
Date of Encounter: 08/14/17 Time of Encounter: 14:30 - Discharge Diagnosis (1) COPD exacerbation Priority: Primary Status: Acute (2) Elevated brain natriuretic peptide (BNP) level Priority: Secondary Status: Acute (3) Hypertension Priority: Secondary Status: Chronic Qualifiers: Hypertension type: essential hypertension Qualified Code(s): I10 - Essential (primary) hypertension (4) Hypothyroidism Priority: Secondary Status: Chronic Qualifiers: Hypothyroidism type: unspecified Qualified Code(s): E03.9 - Hypothyroidism , unspecified Hospital course: Mr. Williamson is a 61 year old male who came to emergency room stating he had cough productive of occasional yellow and brown sputum onset approximately 4 weeks ago. He has had dyspnea on exertion. He has been to [facility] urgent care twice and received antibiotics and steroids. He did not feel improved so came to emergency room today. He was evaluated and felt to have exacerbation of COPD with possible superimposed heart failure. [facility] was [facility] floor for ongoing care needs. Initial orders were written by the emergency room physician. I saw him on August 13 and performed a history and physical. He was started on IV Rocephin and doxycycline with lactobacillus. He had significant clinical improvement overnight with WBC normalizing to 10.9 and resolution of the left shift. Remained afebrile during his hospital stay. He will continue with antibiotic and probiotic for 3 additional days at discharge. Bn peptide improved to 331 the following day. When I saw him on August 14 his dyspnea had resolved and he wished to be discharged home which I felt was reasonable. He will follow with his PCP Dr. Ayala within 1 week. - Time Spent with Patient Total time spent providing and/or coordinating discharge services: - Discharge Medications Prescriptions: Cefuroxime PO [Ceftin] 500 mg PO Q12HR #6 tablet Doxycycline 100 mg PO BID #6 capsule Lactobacillus [Culturelle] 1 each PO BID #6 cap.sprink Home Medications: Albuterol Neb [Proventil Neb] 2.5 mg IH Q4HR PRN 05/23/15 [History] Albuterol Sulfate [Albuterol Inhaler] 2 puff IH Q4H PRN 05/23/15 [History] Aspirin [Adult Low Dose Aspirin EC] 325 mg PO DAILY 05/23/15 [History] Gabapentin [Neurontin] 800 mg PO TID 05/23/15 [History] Hydrocodone/Acetaminophen [S[place]ney 10-325 Tablet] 1 tab PO Q8H PRN 05/23/15 [ History] Levothyroxine [Synthroid] 50 mcg PO DAILY 05/23/15 [History] Loratadine [Claritin] 10 mg PO DAILY 05/23/15 [History] Melatonin [Melatin] 5 mg PO HS 05/23/15 [History] [place]-3S/Dha/Epa/Fish Oil [Fish Oil 1,200 mg Softgel] 1 cap PO DAILY 05/23/15 [ History] Tiotropium [Spiriva] 18 mcg IH DAILY 05/23/15 [History] Topiramate [Topamax] 25 mg PO HS 05/23/15 [History] Cholecalciferol (D-3) [Vitamin D] 2,000 unit PO DAILY 06/04/16 [History] Docusate [Colace] 100 mg PO DAILY PRN 06/04/16 [History] Ondansetron ODT [Zofran ODT] 4 mg SL Q8HR PRN 11/15/16 [History] Polyethylene Glycol 3350 [Purelax] 17 gm PO QDPC 11/15/16 [History] Ranitidine HCl [Acid Gas And Oil Checker] 150 mg PO Q8H 03/09/17 [History] hydroCHLOROthiazide [Hydrochlorothiazide] 25 mg PO DAILY 03/09/17 [History] Metoprolol XL (24 HR) Succ [Toprol Xl] 25 mg PO DAILY 03/10/17 [History] Fexofenadine HCl [Allergy Relief] 180 mg PO DAILY 06/04/17 [History] Furosemide [Lasix] 40 mg PO DAILY 06/04/17 [History] diazePAM [Valium] 5 mg PO BID 06/04/17 [History] Insulin ASPART [Novolog Flexpen] 100 unit SQ TIDWM 5 Days #1 insuln.pen [Rx] predniSONE [PredniSONE] 40 mg PO DAILY #4 tablet 06/06/17 [Rx] Cefuroxime PO [Ceftin] 500 mg PO Q12HR #6 tablet 08/14/17 [Rx] Doxycycline 100 mg PO BID #6 capsule 08/14/17 [Rx] Lactobacillus [Culturelle] 1 each PO BID #6 cap.sprink 08/14/17 [Rx] Allergies/Adverse Reactions: 3 Allergy/AdvReac Type Severity Reaction Status Date / Time Oxycodone [From Percocet] Allergy Anaphylaxis Verified 06/04/17 11:31 tramadol AdvReac Unknown [place] Verified 06/04/17 00:01 acetaminophen AdvReac Itching Verified 06/04/17 00:01 morphine AdvReac Hallucinati Verified 06/04/17 00:01 ng Date of admission: 08/13/17 14:26 Primary care physician: Dayday Ayala DO - Constitutional Vitals: Temp Pulse Resp BP Pulse Ox 98.2 F 57 17 99/61 87 08/14/17 11:23 08/14/17 11:23 08/14/17 11:48 08/14/17 11:23 08/14/17 11:48 - Patient Status Disposition: Home, Self-Care Condition: Fair Functional capacity at discharge: uses cane/walker Overall status at discharge: patient is progressing back to baseline - Discharge Instructions Follow Up With: Dayday Ayala DO [Primary Care Provider] - 1 week - Diet and Activity Activity: resume usual activities as tolerated, wear oxygen at all times Diet: advance to your usual diet - VTE Reasons for not Prescribing Prophylaxis: Treatment not Indicated - Low risk for VTE
[2017-08-14] MEDS ORDERED: cefTRIAXone 1,000 MG in Water for inj. (sterile) 20 ML 10 ML IVP SCH (16:00)
--- NOTE | 2017-08-16 20:00 | Electrocardiograph Report ---
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
--- NOTE | 2017-08-16 20:01 | Electrocardiograph Report ---
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
== END 2017-08-14 15:30 | disposition home or self-care (01) ==
LOC: EMEROOPIK 10:18 → INPPIK 10:18
PROVIDERS: ADMIT Student in an Organized Health Care Education/Training Program; ATTEND Internal Medicine

== ENCOUNTER 2017-09-20 09:07 | Inpatient (IN) ==
[2017-09-20] MEDS ORDERED: Ipratropium/Albuterol Neb 3 ML IH ONE (09:18)
[2017-09-20] MEDS ORDERED: methylPREDNISolone 125 MG/2 ML VIAL IVP ONE (09:18)
--- NOTE | 2017-09-20 09:20 | Emergency Department Note ---
Disposition Clinical Impression: Acute on chronic respiratory failure with hypoxia and hypercapnia, CKD ( chronic kidney disease) stage 3, GFR 30-59 ml/min, Hyponatremia with excess extracellular fluid volume Acute and chronic respiratory failure Qualifiers: Respiratory failure complication: hypoxia and hypercapnia Qualified Code(s): J96.21 - Acute and chronic respiratory failure with hypoxia CHF (congestive heart failure) Qualifiers: Heart failure type: unspecified Heart failure chronicity: acute on chronic Qualified Code(s): I50.9 - Heart failure, unspecified Disposition: Admitted As Inpatient Condition: Serious Time of Disposition: 10:15 (Dr Gregory) SOB HPI - General Chief Complaint: ED Shortness of Breath/Dyspnea Stated Complaint: low 02 sat, trouble breathing Time Seen by Provider: 09/20/17 09:10 Source: patient, family, other (PCP) Mode of arrival: wheelchair Limitations: physical limitation Nursing Notes Reviewed: Yes Vital Signs Reviewed: Yes - History of Present Illness Pt Subjective Complaint: shortness of breath Onset (ago): day(s) (5) Context: other (Aggressive short of breath secondary to potential COPD with exacerbation.) Severity: severe Consistency/Duration: gradually worsening Improves with: oxygen, rest, upright position Worsens with: lying flat, exertion, coughing Known history of: COPD Associated symptoms: Reports: cough, wheezing, sputum production. Denies: chest pain, pain with inspiration, fever, orthopnea, lower extremity pain, polyuria, polydipsia, parasthesias, palpitations, hemoptysis, diaphoresis, nausea/vomiting, syncope, abdominal pain, sense of impending doom Treatment prior to arrival: none Cough present: Yes Cough Description: Involuntary Cough Frequency: Intermittent Sputum Amount: Small Sputum Color: White - Related Data Home oxygen amount: 2 liters Home Medications Medication Instructions Recorded Confirmed Albuterol Neb [Proventil Neb] 2.5 mg IH Q4HR PRN 05/23/15 09/20/17 Albuterol Sulfate [Albuterol 2 puff IH Q4H PRN 05/23/15 09/20/17 Inhaler] Gabapentin [Neurontin] 800 mg PO TID 05/23/15 09/20/17 Levothyroxine [Synthroid] 50 mcg PO DAILY 05/23/15 09/20/17 Loratadine [Claritin] 10 mg PO DAILY 05/23/15 09/20/17 Melatonin [Melatin] 5 mg PO HS 05/23/15 09/20/17 [place]-3S/Dha/Epa/Fish Oil [Fish 1 cap PO DAILY 05/23/15 09/20/17 Oil 1,200 mg Softgel] Topiramate [Topamax] 25 mg PO HS 05/23/15 09/20/17 Cholecalciferol (D-3) [Vitamin D] 2,000 unit PO DAILY 06/04/16 09/20/17 Ondansetron ODT [Zofran ODT] 4 mg SL Q12H PRN 11/15/16 09/20/17 hydroCHLOROthiazide 25 mg PO DAILY 03/09/17 09/20/17 [Hydrochlorothiazide] Metoprolol XL (24 HR) Succ [Toprol 25 mg PO BID 03/10/17 09/20/17 Xl] Fexofenadine HCl [Allergy Relief] 180 mg PO DAILY 06/04/17 09/20/17 Furosemide [Lasix] 40 mg PO DAILY 06/04/17 09/20/17 diazePAM [Valium] 5 mg PO BID 06/04/17 09/20/17 Celecoxib [Celebrex] 200 mg PO DAILY 09/20/17 09/20/17 Fluticasone/Vilanterol [Breo 1 each IH DAILY 09/20/17 09/20/17 Ellipta 200-25 Mcg INH] Guaifenesin [Mucinex] 600 mg PO Q12H 09/20/17 09/20/17 Ipratropium/Albuterol Neb [Duoneb] 3 ml IH Q6HR 09/20/17 09/20/17 Omeprazole [PriLOSEC] 40 mg PO DAILY 09/20/17 09/20/17 Pioglitazone HCl [Actos] 30 mg PO DAILY 09/20/17 09/20/17 Previous Rx's Medication Instructions Recorded Insulin ASPART [Novolog Flexpen] 100 unit SQ TIDWM 5 Days #1 06/06/17 insuln.pen Lactobacillus [Culturelle] 1 each PO BID #6 cap.sprink 08/14/17 Allergies Allergy/AdvReac Type Severity Reaction Status Date / Time Oxycodone [From Percocet] Allergy Anaphylaxis Verified 09/20/17 09:09 tramadol AdvReac Unknown [place] Verified 09/20/17 09:09 acetaminophen AdvReac Itching Verified 09/20/17 09:09 morphine AdvReac Hallucinati Verified 09/20/17 09:09 ng All systems ED: reviewed and negative except as stated. Past Medical History - Past Medical History Medical history: Reports: CHF, COPD, GERD, hyperlipidemia, hypertension, renal disease, thyroid disease Surgical history: Reports: cholecystectomy Psychiatric history: Reports: no psych history - Social History Smoking Status: Current some day smoker Smokeless Tobacco Status: No Alcohol use: Reports: none Drug use: Reports: none Physical Exam - General Limitations: physical limitation General appearance: alert, in distress - Head Head exam: atraumatic - Eye Eye exam: Present: normal appearance, PERRL, EOMI. Absent: scleral icterus, conjunctival injection - ENT ENT exam: normal exam, normal oropharynx, mucous membranes moist - Chest Chest inspection: Present: normal inspection, symmetric chest wall rise - Respiratory Respiratory exam: Present: normal lung sounds bilaterally, respiratory distress , prolonged expiratory phase. Absent: wheezes, stridor, accessory muscle use - Expanded Respiratory Exam Location: decreased breath sounds: Left, Right, Upper, Lower - Cardiovascular Cardiovascular exam: Present: regular rate, normal rhythm, normal heart sounds - Abdominal Exam Abdominal exam: Present: soft, Non-Tender. Absent: tenderness, distention, guarding, rebound, rigidity - Extremities Exam Extremities exam: Present: full ROM, normal capillary refill, pedal edema. Absent: tenderness, calf tenderness - Neurological Exam Neurological exam: Present: alert, oriented X3 - Psychiatric Psychiatric exam: Present: normal affect, normal mood - Skin Skin exam: Present: warm, dry, intact, normal color. Absent: pallor, mottled Course - Reevaluation(s) Reevaluation #1: Improved respiratory status, improved air movement after DuoNeb treatment. The patient will be given Xopenex 2 for further improvement. Chest x-ray shows vascular congestion. Time: 09:46 Time: 11:49 Reevaluation #3: Patient stable no signs of impending respiratory failure. ABG shows he is hypercarbic. [facility] Vital Signs Temperature 97.9 F 09/20/17 09:11 Pulse Rate 73 09/20/17 09:11 Respiratory Rate 20 09/20/17 09:11 Blood Pressure 123/57 09/20/17 09:11 O2 Sat by Pulse Oximetry 95 09/20/17 09:11 Temperature 97.9 F 09/20/17 09:11 Pulse Rate 74 09/20/17 11:41 Respiratory Rate 20 09/20/17 11:41 Blood Pressure 135/71 09/20/17 11:41 O2 Sat by Pulse Oximetry 93 09/20/17 11:41 Oxygen Delivery Oxygen Delivery Nasal Cannula Shortness of Breath/Dyspnea - [facility] Narrative Medical decision making narrative: Stable hemodynamically throughout the ED course. The patient's work of breathing improved after respiratory treatments. He has elevated troponin which is improved from previous evaluation. The patient does not have any chest pain or any EKG changes. He does have elevated BNP levels as well as elevated creatinine which could be influencing the troponin levels. The patient will be admitted to the [facility] for further stabilization of his COPD exacerbation as well as diuresis for edema secondary to congestive heart failure. Laboratory diagnostic results were discussed with hospitalist and updated with ED changes. The patient and family are amenable with current disposition and plan. - Differential Diagnosis Likely: acute exacerbation of chronic obstructive airways disease, congestive heart failure, pneumonia, arrhythmia - Medical Records Medical records reviewed: Yes I reviewed the patient's medical records. - Lab Data Lab results reviewed: Yes I reviewed the patient's lab results. Result diagrams: 09/20/17 09:40 Lab Results 09/20/17 09/20/17 09/20/17 Range/Units 09:39 09:39 09:40 WBC 9.5 (4.3-11.1) K/mcL RBC 5.75 H (4.19-5.50) M/mcL Hgb 13.1 (12.9-16.9) g/dL Hct 46.8 (37.5-50.1) % MCV 81.4 L (83.0-100.0) fL MCH 22.8 L (28.0-33.3) pg MCHC 28.0 L (31.6-35.5) g/dL RDW 20.6 H (11.5-14.5) % Plt Count 288 (140-400) K/mcL MPV 10.0 (9.4-12.4) fL Immature Gran % 1.5 (0-4) % Seg Neutrophils % 67.6 % Lymphocytes % 16.7 % Monocytes % 12.8 % Eosinophils % 0.5 % Basophils % 0.9 % Neutrophils # 6.4 (1.6-8.9) K/mcL Lymphocytes # 1.6 (0.6-4.6) K/mcL Monocytes # 1.2 (0.0-1.3) K/mcL Eosinophils # 0.1 (0.0-0.6) K/mcL Basophils # 0.1 (0.0-0.2) K/mcL Nucleated RBCs/100 WBC 4.3 H (0) /100 WBC Polychromasia 1+ A (Not Present) Hypochromasia Present A (Not Present) Anisocytosis 1+ A (Not Present) Venous Sodium (135-145) mEq/L Venous Potassium (3.5-5.5) mEq/L Venous Chloride (98-107) mEq/L Venous Creatinine (0.72-1.25) mg/dL Whole Bld Glucose (65-95) mg/dl Troponin I 0.07 H* (< 0.04) ng/mL B-Natriuretic Peptide 1794 H (Less than 100) pg/mL 09/20/17 Range/Units 09:50 WBC (4.3-11.1) K/mcL RBC (4.19-5.50) M/mcL Hgb (12.9-16.9) g/dL Hct (37.5-50.1) % MCV (83.0-100.0) fL MCH (28.0-33.3) pg MCHC (31.6-35.5) g/dL RDW (11.5-14.5) % Plt Count (140-400) K/mcL MPV (9.4-12.4) fL Immature Gran % (0-4) % Seg Neutrophils % % Lymphocytes % % Monocytes % % Eosinophils % % Basophils % % Neutrophils # (1.6-8.9) K/mcL Lymphocytes # (0.6-4.6) K/mcL Monocytes # (0.0-1.3) K/mcL Eosinophils # (0.0-0.6) K/mcL Basophils # (0.0-0.2) K/mcL Nucleated RBCs/100 WBC (0) /100 WBC Polychromasia (Not Present) Hypochromasia (Not Present) Anisocytosis (Not Present) Venous Sodium 128 L (135-145) mEq/L Venous Potassium 2.8 L (3.5-5.5) mEq/L Venous Chloride 75 L (98-107) mEq/L Venous Creatinine 1.26 H (0.72-1.25) mg/dL Whole Bld Glucose 130 H (65-95) mg/dl Troponin I (< 0.04) ng/mL B-Natriuretic Peptide (Less than 100) pg/mL - Radiology Data Radiology results reviewed: Yes I reviewed the patient's radiology results. - EKG Data EKG attestation: Yes I reviewed and interpreted this EKG. Rhythm: Reports: NSR, PVC's [place]/QRS: Reports: normal Interpretation: Reports: unchanged when compared to prior tracing (date) (08/16/17 ), nonspecific ST-T wave changes Critical Care Time Critical Care Time: Yes Total Critical Care Time: 45 Attestation: Critical care performed: Time is exclusive of separately billable procedures. Time includes: direct patient care, patient reassessment, coordination of patient care, interpretation of data (laboratory data, radiology data, and respiratory data), review of patient's medical records, medical consultation and documentation of patient care. Procedures included in critical care time: Procedures excluded from critical care time:
[2017-09-20] MEDS ORDERED: Levalbuterol Neb 1.25 MG/3 ML IH STA (09:48)
[2017-09-20 09:54] LABS: VBG Chloride 75 mEq/L (98-107); VBG Creatinine 1.26 mg/dL (0.72-1.25); VBG Glucose 130 mg/dl (65-95)
[2017-09-20] MEDS ORDERED: Furosemide 40 MG/4 ML VIAL IVP ONE (09:54)
[2017-09-20 09:55] LABS: Basophils # 0.1 K/mcL (0.0-0.2); Basophils % 0.9 %; Eosinophils # 0.1 K/mcL (0.0-0.6); Eosinophils % 0.5 %; Hematocrit 46.8 % (37.5-50.1); Hemoglobin 13.1 g/dL (12.9-16.9); Immature Granulocytes % 1.5 % (0-4); Lymphocytes # 1.6 K/mcL (0.6-4.6); Lymphocytes % 16.7 %; Mean Corpuscular Hemoglobin 22.8 pg (28.0-33.3); Mean Corpuscular Volume 81.4 fL (83.0-100.0); Monocytes # 1.2 K/mcL (0.0-1.3); Monocytes % 12.8 %; Neutrophils # 6.4 K/mcL (1.6-8.9); Nucleated Red Blood Cells 4.3 /100 WBC (0); Platelet Count 288 K/mcL (140-400); Red Blood Count 5.75 M/mcL (4.19-5.50); Red Cell Distribution Width 20.6 % (11.5-14.5); Segmented Neutrophils % 67.6 %
[2017-09-20 10:40] LABS: Hypochromasia Present (Not Present); Polychromasia 1+ (Not Present)
[2017-09-20 10:41] LABS: Anisocytosis 1+ (Not Present)
[2017-09-20 10:58] LABS: Troponin I 0.07 ng/mL (< 0.04)
[2017-09-20 11:48] LABS: ABG Base Excess 18 mEq/L (-2 to 3); ABG HCO3 50 mEq/L (21-27); ABG Oxygen Saturation 80 % (95-98); ABG PCO2 83 mmHg (35-45); ABG PH 7.39 pH Units (7.32-7.45); ABG PO2 48 mmHg (85-104); ABG TCO2 52 mEq/L (20-26); Blood Gas Modality nc
[2017-09-20] MEDS ORDERED: Naloxone 0.4 MG/ML INJ IVP PRN (11:56)
[2017-09-20] MEDS ORDERED: 0.9 % Sodium Chloride 1,000 ML IVC SCH (11:56)
[2017-09-20] MEDS ORDERED: Ondansetron 4 MG/2 ML VIAL IVP PRN (11:56)
[2017-09-20] MEDS ORDERED: Acetaminophen 325 MG TABLET PO PRN (11:56)
[2017-09-20] MEDS ORDERED: Ondansetron ODT 4 MG TAB.RAPDIS SL PRN (11:56)
[2017-09-20] MEDS ORDERED: NON-FORMULARY MEDICATION 1 EACH EACH (Insulin Aspart [Novolog Flexpen] 100 UNIT) SQ SCH (12:00)
[2017-09-20 12:02] LABS: BUN/Creatinine Ratio 24 (6-26); Blood Urea Nitrogen 24 mg/dL (8-23); Calcium 10.1 mg/dL (8.6-10.3); Carbon Dioxide > 45 mEq/L (23-29); Chloride 75 mEq/L (98-107); Glucose 130 mg/dL (70-105); Osmolality,Calculated 278 (280-300); Sodium 131 mEq/L (136-145); eGFR For African Americans > 60 (> 60); eGFR For Non-African Americans > 60 (> 60)
[2017-09-20] MEDS ORDERED: D5% in Water 1,000 ML IVC PRN (12:40)
[2017-09-20] MEDS ORDERED: *HR* Dextrose 50 % in Water (Syg) 50 ML SYRINGE IVP PRN (12:40)
[2017-09-20] MEDS ORDERED: Dextrose Gel 15 GM PO PRN ×2 (12:40)
[2017-09-20] MEDS: Albuterol 2.5 MG/3 ML NEBULIZER IH PRN ×2 (15:24→22:13)
--- NOTE | 2017-09-20 15:25 | Internal Med History&Physical ---
Date of Encounter: 09/20/17 Time of Encounter: 14:55 Assessment and Plan (1) CHF (congestive heart failure) Current visit: Yes Status: Acute LVEF was 60% on 06/04/2017 echocardiogram. There was reported mild LV diastolic dysfunction. Will change Lasix to IV, start lisinopril, and continue Toprol. Qualifiers: Heart failure type: diastolic Heart failure chronicity: acute on chronic Qualified Code(s): I50.33 - Acute on chronic diastolic (congestive) heart failure (2) Acute exacerbation of chronic obstructive pulmonary disease (COPD) Current visit: No Status: Acute Continue albuterol nebs and inhaler with Spiriva. (3) CKD (chronic kidney disease) stage 3, GFR 30-59 ml/min Current visit: Yes Status: Chronic Will monitor renal indices. Internal Medicine - H&P: HPI Chief complaint: Dyspnea with cough Admitted From: Emergency Dept Plans for Post Hospital Care: Home History of present illness: Mr. Williamson is a 61 year old male who was sent to emergency room from his PCP office for further evaluation for dyspnea. He reports the dyspnea started approximately one week ago. There was coughing with minimal productivity. There was no significant chest pain. He was evaluated in emergency room and was felt to have exacerbation of COPD. He was admitted to [facility] floor for ongoing care needs. He was hospitalized at [facility] August 2017 with COPD exacerbation. His respiratory history is significant for having smoked since age 5 up to 3 packs per day. He has continued to smoke AGAINST MEDICAL ADVICE. He has a diagnosis of COPD and states PFTs were done approximately 2006. He has decreased oxygen use from 24/ 7 to only at bedtime and when necessary during the daytime. He has been diagnosed with BALBINA but states he cannot tolerate CPAP/BiPAP mask. Past Med Surg Social Fam HX - Past Medical History Medical history: CHF, COPD, GERD, hyperlipidemia, hypertension, renal disease, thyroid disease Psychiatric history: no psych history - Past Surgical History Surgical History: cholecystectomy - Social History Smoking Status: Current some day smoker Smokeless Tobacco Status: No Alcohol use: none Drug use: none - Family History Father Living Status: Hx Family Cardiac Disorders: Yes Hx Family Cancer: Yes (Lung) Hx Family Endocrine Disorder: Yes (Diabetes) Brother Hx Family Respiratory Disorders: Yes (COPD) Mother Hx Family Cardiac Disorders: Yes Internal Medicine - H&P: Meds Albuterol Neb [Proventil Neb] 2.5 mg IH Q4HR PRN 05/23/15 [History] Albuterol Sulfate [Albuterol Inhaler] 2 puff IH Q4H PRN 05/23/15 [History] Gabapentin [Neurontin] 800 mg PO TID 05/23/15 [History] Levothyroxine [Synthroid] 50 mcg PO DAILY 05/23/15 [History] Loratadine [Claritin] 10 mg PO DAILY 05/23/15 [History] Melatonin [Melatin] 5 mg PO HS 05/23/15 [History] [place]-3S/Dha/Epa/Fish Oil [Fish Oil 1,200 mg Softgel] 1 cap PO DAILY 05/23/15 [ History] Topiramate [Topamax] 25 mg PO HS 05/23/15 [History] Cholecalciferol (D-3) [Vitamin D] 2,000 unit PO DAILY 06/04/16 [History] Ondansetron ODT [Zofran ODT] 4 mg SL Q12H PRN 11/15/16 [History] hydroCHLOROthiazide [Hydrochlorothiazide] 25 mg PO DAILY 03/09/17 [History] Metoprolol XL (24 HR) Succ [Toprol Xl] 25 mg PO BID 03/10/17 [History] Fexofenadine HCl [Allergy Relief] 180 mg PO DAILY 06/04/17 [History] Furosemide [Lasix] 40 mg PO DAILY 06/04/17 [History] diazePAM [Valium] 5 mg PO BID 06/04/17 [History] Insulin ASPART [Novolog Flexpen] 100 unit SQ TIDWM 5 Days #1 insuln.pen [Rx] Lactobacillus [Culturelle] 1 each PO BID #6 cap.sprink 08/14/17 [Rx] Celecoxib [Celebrex] 200 mg PO DAILY 09/20/17 [History] Fluticasone/Vilanterol [Breo Ellipta 200-25 Mcg INH] 1 each IH DAILY 09/20/17 [ History] Guaifenesin [Mucinex] 600 mg PO Q12H 09/20/17 [History] Ipratropium/Albuterol Neb [Duoneb] 3 ml IH Q6HR 09/20/17 [History] Omeprazole [PriLOSEC] 40 mg PO DAILY 09/20/17 [History] Pioglitazone HCl [Actos] 30 mg PO DAILY 09/20/17 [History] 3 Allergy/AdvReac Type Severity Reaction Status Date / Time Oxycodone [From Percocet] Allergy Anaphylaxis Verified 09/20/17 09:09 tramadol AdvReac Unknown [place] Verified 09/20/17 09:09 acetaminophen AdvReac Itching Verified 09/20/17 09:09 morphine AdvReac Hallucinati Verified 09/20/17 09:09 ng All Systems PM: A 10-system review of systems was performed and is negative for pertinent findings except as documented above in the HPI. Review of systems: Review of systems from his August 2017 [facility] hospitalization were reviewed and revised as below. Gen.: His weight has decreased from 115.33 kg on 11/16/2016 to a weight of 112.491 kg now. Cardiovascular: He has a history of hypertension but denies [place] heart failure angina DVT or pulmonary embolus. He claims he had a heart catheter several years ago at [facility] which showed no significant stenosis. An echocardiogram 06/04 showed LVEF of 60% with reported mild mitral regurgitation and tricuspid regurgitation. There was reported mild LV diastolic dysfunction although the E/ A ratio was 0.9. The estimated RVSP is slightly elevated at 40 mmHg. Respiratory: As per history of present illness GI: He has had cholecystectomy. He claims he has NAFLD. He states he has not drunk alcohol in approximately 20 years. He denies other disorders of his liver or exocrine pancreas : Has chronic kidney disease and follows with a [place] supervisory cbp officer. He denies other kidney bladder or prostate disorders Neurologic: He denies large distribution strokes or seizures. He states he has been diagnosed with early Parkinson's disease. Endocrine: He states he was diagnosed with DM 2 approximately 2002. His last hemoglobin A1c was 7.0% on 11/16/2016. He has history of hypothyroidism and hyperlipidemia Hematology/oncology: He had anemia on blood work in emergency room November 2016 but that has resolved. He denies internal malignancies Psychiatric: He denies anxiety depression or other mental health issues [place] skeletal: He has arthritis but denies gout or other bone joint or muscle disorders. - Constitutional Vitals: Temp Pulse Resp BP Pulse Ox 97.9 F 74 20 135/71 93 09/20/17 09:11 09/20/17 11:41 09/20/17 11:41 09/20/17 11:41 09/20/17 11:41 Exam: Gen.: He is a well-developed well-nourished male sitting on side of bed and appears in no acute distress HEENT: Head is atraumatic and normocephalic. Eyes: EOMI. There is no scleral icterus. Mouth: Mucosa is moist. Neck: Supple and nontender. There is no thyromegaly or adenopathy noted. Heart: Regular without murmurs gallops or ectopics Lungs: No wheezes or crackles are heard. Abdomen: Nontender to palpation. Exam is limited because he is in the seated position. Extremities: He has 2-3+ edema of the dorsum of the feet and lower anterior shins bilaterally. Dorsalis pedis and posterior tibial pulses are not palpated because the edema. Neurologic: Mental status: He is talkative and a fair to good historian. Cranial nerves: Smile is symmetric. Forehead wrinkles bilaterally. Tongue protrudes midline. EOMI. Motor: There is no pronator drift. Cerebellar: Finger to nose is intact bilaterally. Skin: Warm and dry Internal Med - H&P Results - Labs CBC & Chem 7: 09/20/17 09:40 09/20/17 09:39 - ABG Interpretation ABG results: 09/20/17 11:43 ABG pH 7.39 ABG pCO2 83 H* ABG pO2 48 L* ABG HCO3 50 H ABG Total CO2 52 H ABG O2 Saturation 80 L ABG Base Excess 18 H
[2017-09-20] MEDS: Insulin LISPRO 300 UNITS/3 ML VIAL SQ SCH ×2 (18:17→21:42)
[2017-09-20] MEDS: Famotidine 20 MG TABLET PO SCH ×2 (18:18→21:41)
[2017-09-20] MEDS: Gabapentin 400 MG CAPSULE PO SCH ×2 (18:19→21:41)
[2017-09-20] MEDS: Cefuroxime PO 250 MG TABLET PO SCH (18:20)
[2017-09-20] MEDS: *HR* HYDROcodone/Acet 10/325 mg TABLET PO PRN (18:29)
[2017-09-20] MEDS: Topiramate 25 MG TABLET PO SCH (21:41)
[2017-09-20] MEDS: Melatonin 3 MG TABLET PO SCH (21:41)
[2017-09-20] MEDS: Furosemide 40 MG/4 ML VIAL IVP SCH (21:41)
[2017-09-20] MEDS: diazePAM 5 MG TABLET PO SCH (21:41)
--- NOTE | 2017-09-20 23:41 | Electrocardiograph Report ---
[address] [address] Test Date: 2017-09-20 Pat Name: Hugh Williamson Department: [id number] Room: [facility] Gender: M [employer]: [id number] : [id number] Requested By: Marlo Grullon Order Number: [id number] Reading MD: Kiley Jim Measurements Intervals [place] Rate: 70 P: 71 FL: 163 QRS: 74 QRSD: 108 T: 90 QT: 345 QTc: 366 Interpretive Statements SINUS RHYTHM WITH OCCASIONAL VENTRICULAR PREMATURE COMPLEXES POSSIBLE LEFT ATRIAL ENLARGEMENT INDETERMINATE AXIS Electronically Signed On 09-20-2017 23:40:25 EDT by Kiley Jim
[2017-09-21] MEDS: Levothyroxine 25 MCG TABLET PO SCH (05:34)
[2017-09-21] MEDS: Cefuroxime PO 250 MG TABLET PO SCH (05:35)
[2017-09-21] MEDS: *HR* HYDROcodone/Acet 10/325 mg TABLET PO PRN ×2 (05:35→15:19)
[2017-09-21 06:05] LABS: Basophils % 0.3 %; Eosinophils # 0.1 K/mcL (0.0-0.6); Eosinophils % 0.5 %; Hematocrit 46.5 % (37.5-50.1); Hemoglobin 12.5 g/dL (12.9-16.9); Immature Granulocytes % 1.1 % (0-4); Lymphocytes % 20.3 %; Mean Corpuscular HGB Conc 26.9 g/dL (31.6-35.5); Mean Corpuscular Hemoglobin 22.4 pg (28.0-33.3); Mean Corpuscular Volume 83.5 fL (83.0-100.0); Mean Platelet Volume 9.9 fL (9.4-12.4); Monocytes # 1.3 K/mcL (0.0-1.3); Monocytes % 12.6 %; Neutrophils # 6.5 K/mcL (1.6-8.9); Nucleated Red Blood Cells 5.4 /100 WBC (0); Platelet Count 297 K/mcL (140-400); Red Blood Count 5.57 M/mcL (4.19-5.50); Red Cell Distribution Width 20.7 % (11.5-14.5); Segmented Neutrophils % 65.2 %
[2017-09-21] MEDS: Albuterol 2.5 MG/3 ML NEBULIZER IH PRN ×4 (06:09→20:39)
[2017-09-21 07:21] LABS: Platelet Estimate Normal (Normal)
[2017-09-21 07:23] LABS: Anisocytosis 1+ (Not Present); Hypochromasia Present (Not Present); Stomatocytes 1+ (Not Present)
[2017-09-21] MEDS: Famotidine 20 MG TABLET PO SCH ×2 (07:29→19:59)
[2017-09-21] MEDS: Cholecalciferol (D-3) 1,000 UNIT TABLET PO SCH (07:29)
[2017-09-21] MEDS: Gabapentin 400 MG CAPSULE PO SCH ×3 (07:30→19:59)
[2017-09-21] MEDS: Metoprolol XL (24 HR) Succ 25 MG TAB.ER.24H PO SCH (07:30)
[2017-09-21] MEDS: diazePAM 5 MG TABLET PO SCH (07:30)
[2017-09-21] MEDS: Furosemide 40 MG/4 ML VIAL IVP SCH ×2 (07:30→19:58)
[2017-09-21] MEDS: Insulin LISPRO 300 UNITS/3 ML VIAL SQ SCH ×4 (07:31→19:59)
[2017-09-21 07:36] LABS: BUN/Creatinine Ratio 25 (6-26); Blood Urea Nitrogen 33 mg/dL (8-23); Calcium 9.3 mg/dL (8.6-10.3); Carbon Dioxide > 45 mEq/L (23-29); Chloride 77 mEq/L (98-107); Glucose 100 mg/dL (70-105); Osmolality,Calculated 285 (280-300); Potassium 2.6 mEq/L (3.5-5.1); Sodium 134 mEq/L (136-145); eGFR For African Americans > 60 (> 60); eGFR For Non-African Americans 56 (> 60)
[2017-09-21] MEDS ORDERED: Furosemide 40 MG TABLET PO SCH (09:00)
[2017-09-21] MEDS ORDERED: predniSONE 20 MG TABLET PO SCH (09:00)
[2017-09-21] MEDS ORDERED: Loratadine 10 MG TABLET PO SCH (09:00)
[2017-09-21] MEDS ORDERED: hydroCHLOROthiazide 25 MG TABLET PO SCH (09:00)
[2017-09-21] MEDS ORDERED: Aspirin Enteric Coated 325 MG Tablet PO SCH (09:00)
[2017-09-21] MEDS ORDERED: NON-FORMULARY MEDICATION 1 EACH EACH (Fexofenadine Hcl [Allergy Relief] 180 MG) PO SCH (09:00)
[2017-09-21] MEDS: Tiotropium 18 MCG inhalation IH SCH (09:46)
--- NOTE | 2017-09-21 10:18 | Internal Med Progress Note ---
Date of Encounter: 09/21/17 Time of Encounter: 10:10 - Assessment and plan (1) CHF (congestive heart failure) Current Visit: Yes Status: Acute Assessment and plan: September 21. LVEF was 60% on 06/04/2017 echocardiogram. There was reported mild LV diastolic dysfunction. Will stop lisinopril due to worsening azotemia. Continue Toprol and add isosorbide and monitor. Qualifiers: Heart failure type: diastolic Heart failure chronicity: acute on chronic Qualified Code(s): I50.33 - Acute on chronic diastolic (congestive) heart failure (2) Acute exacerbation of chronic obstructive pulmonary disease (COPD) Current Visit: No Status: Acute Assessment and plan: September 21. Continue albuterol nebs and inhaler with Spiriva. (3) CKD (chronic kidney disease) stage 3, GFR 30-59 ml/min Current Visit: Yes Status: Chronic Assessment and plan: September 21. We will discontinue lisinopril and monitor renal indices. (4) Hypokalemia Current Visit: Yes Status: Acute Assessment and plan: September 21. We will give supplemental potassium and monitor labs. - Subjective Interval history: September 21. He has no new complaints - Constitutional Vitals: Temp Pulse Resp BP Pulse Ox 98.1 F 66 18 94/58 96 09/21/17 06:46 09/21/17 06:46 09/21/17 09:50 09/21/17 06:46 09/21/17 09:50 Exam: He is resting currently on the side of bed and appears in no acute distress. His edema is unchanged. 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 I reviewed his medications Internal Medicine: Result - Labs CBC & Chem 7: 09/21/17 04:49 09/21/17 04:49 Labs: Short CBC 09/21/17 Range/Units 04:49 WBC 10.0 (4.3-11.1) K/mcL Hgb 12.5 L (12.9-16.9) g/dL Hct 46.5 (37.5-50.1) % Plt Count 297 (140-400) K/mcL Neutrophils # 6.5 (1.6-8.9) K/mcL BMP 09/21/17 04:49 Sodium 134 L Potassium 2.6 L Chloride 77 L Carbon Dioxide > 45 H* BUN 33 H Creatinine 1.31 H Glucose 100 Calcium 9.3 - ABG Interpretation ABG results: ABG ABG pH 7.39 pH Units (7.32-7.45) 09/20/17 11:43 ABG pCO2 83 mmHg (35-45) H* 09/20/17 11:43 ABG pO2 48 mmHg (85-104) L* 09/20/17 11:43 ABG O2 Saturation 80 % (95-98) L 09/20/17 11:43 Consult Discharge Plan - Plan Referrals: Dayday Ayala DO [Primary Care Provider] - 1 week
[2017-09-21] MEDS ORDERED: ALPRAZolam 0.5 MG TABLET PO PRN (10:21)
[2017-09-21] MEDS ORDERED: Potassium Chloride 40 MEQ, Lidocaine 1% 2 ML in D5% in Water 500 ML IVPB ONE (10:22)
[2017-09-21] MEDS: Aspirin Enteric Coated 81 MG Tablet PO SCH (10:48)
[2017-09-21 11:37] LABS: Estimated Average Glucose 169 mg/dl; Hemoglobin A1C 7.5 %
[2017-09-21] MEDS: Isosorbide MONOnitrate (24 HR) 30 MG TAB.ER.24H PO SCH (15:19)
[2017-09-21] MEDS: Topiramate 25 MG TABLET PO SCH (19:59)
[2017-09-21] MEDS: Melatonin 3 MG TABLET PO SCH (19:59)
[2017-09-22] MEDS: Levothyroxine 25 MCG TABLET PO SCH (05:41)
[2017-09-22] MEDS ORDERED: *HR* Enoxaparin 40 MG/0.4 ML SYRINGE SQ SCH (06:00)
[2017-09-22 06:48] LABS: Basophils # 0.1 K/mcL (0.0-0.2); Basophils % 0.9 %; Eosinophils # 0.2 K/mcL (0.0-0.6); Eosinophils % 1.5 %; Hematocrit 48.5 % (37.5-50.1); Hemoglobin 12.5 g/dL (12.9-16.9); Immature Granulocytes % 2.9 % (0-4); Lymphocytes # 2.4 K/mcL (0.6-4.6); Lymphocytes % 20.5 %; Mean Corpuscular HGB Conc 25.8 g/dL (31.6-35.5); Mean Corpuscular Hemoglobin 22.7 pg (28.0-33.3); Mean Platelet Volume 9.5 fL (9.4-12.4); Monocytes # 1.6 K/mcL (0.0-1.3); Monocytes % 13.6 %; Neutrophils # 7.1 K/mcL (1.6-8.9); Nucleated Red Blood Cells 5.2 /100 WBC (0); Platelet Count 266 K/mcL (140-400); Red Blood Count 5.51 M/mcL (4.19-5.50); Red Cell Distribution Width 20.3 % (11.5-14.5); Segmented Neutrophils % 60.6 %
[2017-09-22 07:36] LABS: Anisocytosis 2+ (Not Present); Hypochromasia Present (Not Present); Platelet Estimate Normal (Normal); Stomatocytes 2+ (Not Present)
[2017-09-22 07:40] LABS: BUN/Creatinine Ratio 30 (6-26); Blood Urea Nitrogen 50 mg/dL (8-23); Calcium 9.1 mg/dL (8.6-10.3); Carbon Dioxide > 45 mEq/L (23-29); Chloride 78 mEq/L (98-107); Glucose 132 mg/dL (70-105); Magnesium 2.4 mg/dL (1.6-2.6); Osmolality,Calculated 287 (280-300); Potassium 3.5 mEq/L (3.5-5.1); Sodium 131 mEq/L (136-145); eGFR For African Americans 50 (> 60); eGFR For Non-African Americans 42 (> 60)
[2017-09-22] MEDS: Insulin LISPRO 300 UNITS/3 ML VIAL SQ SCH ×2 (07:45→12:12)
[2017-09-22 08:51] LABS: ABG Base Excess 9 mEq/L (-2 to 3); ABG HCO3 47 mEq/L (21-27); ABG Oxygen Saturation 68 % (95-98); ABG PCO2 148 mmHg (35-45); ABG PH 7.11 pH Units (7.32-7.45); ABG PO2 52 mmHg (85-104); ABG TCO2 52 mEq/L (20-26)
[2017-09-22] MEDS: Gabapentin 400 MG CAPSULE PO SCH (09:15)
[2017-09-22] MEDS: Isosorbide MONOnitrate (24 HR) 30 MG TAB.ER.24H PO SCH (09:15)
[2017-09-22] MEDS: Aspirin Enteric Coated 81 MG Tablet PO SCH (09:15)
[2017-09-22] MEDS: Furosemide 40 MG/4 ML VIAL IVP SCH (09:16)
[2017-09-22] MEDS: Cholecalciferol (D-3) 1,000 UNIT TABLET PO SCH (09:16)
[2017-09-22] MEDS: Metoprolol XL (24 HR) Succ 25 MG TAB.ER.24H PO SCH (09:16)
[2017-09-22] MEDS: Famotidine 20 MG TABLET PO SCH (09:16)
[2017-09-22 09:55] LABS: ABG Base Excess 6 mEq/L (-2 to 3); ABG HCO3 40 mEq/L (21-27); ABG Oxygen Saturation 84 % (95-98); ABG PCO2 112 mmHg (35-45); ABG PH 7.16 pH Units (7.32-7.45); ABG PO2 67 mmHg (85-104); ABG TCO2 44 mEq/L (20-26); Blood Gas Modality BiLevel; Blood Gas Respiration Rate 26
[2017-09-22 10:16] VITALS: BP 90/49
[2017-09-22] MEDS: Tiotropium 18 MCG inhalation IH SCH (10:44)
[2017-09-22 11:04] LABS: ABG Base Excess 11 mEq/L (-2 to 3); ABG HCO3 47 mEq/L (21-27); ABG Oxygen Saturation 86 % (95-98); ABG PCO2 132 mmHg (35-45); ABG PH 7.16 pH Units (7.32-7.45); ABG PO2 71 mmHg (85-104); ABG TCO2 51 mEq/L (20-26); Blood Gas Modality BiLevel
[2017-09-22 12:48] LABS: ABG Base Excess 12 mEq/L (-2 to 3); ABG HCO3 49 mEq/L (21-27); ABG Oxygen Saturation 84 % (95-98); ABG PCO2 133 mmHg (35-45); ABG PH 7.17 pH Units (7.32-7.45); ABG PO2 68 mmHg (85-104); ABG TCO2 53 mEq/L (20-26); Blood Gas Modality BiLevel
[2017-09-22] MEDS ORDERED: *HR* Midazolam HCl 5 MG/5 ML VIAL IVP ONE (12:48)
[2017-09-22] MEDS ORDERED: *HR* Midazolam HCl 2 MG/2 ML VIAL ONE (13:00)
--- NOTE | 2017-09-22 13:17 | Discharge Summary ---
Date of Encounter: 09/22/17 Time of Encounter: 10:15 - Discharge Diagnosis (1) CHF (congestive heart failure) Priority: Primary Status: Acute Qualifiers: Heart failure type: diastolic Heart failure chronicity: acute on chronic Qualified Code(s): I50.33 - Acute on chronic diastolic (congestive) heart failure (2) Acute exacerbation of chronic obstructive pulmonary disease (COPD) Priority: Secondary Status: Acute (3) CKD (chronic kidney disease) stage 3, GFR 30-59 ml/min Priority: Secondary Status: Chronic (4) Hypokalemia Priority: Secondary Status: Acute Hospital course: Mr. Williamson is a 61 year old male who was sent to emergency room from his PCP office for further evaluation for dyspnea. He reports the dyspnea started approximately one week ago. There was coughing with minimal productivity. There was no significant chest pain. He was evaluated in emergency room and was felt to have exacerbation of COPD. He was admitted to [facility] floor for ongoing care needs. Initial orders were written by the emergency room physician. I saw him on September 20 and performed a history and physical. He was started on IV diuretics and given lisinopril. Toprol was continued. Isosorbide was started. His BN peptide improved to 682 by day of transfer. The morning of September 22 staff noticed his responsiveness was decreased. Blood gas showed acute respiratory insufficiency with a pH 7.11, PCO2 148, and PO2 52. He was placed on BiPAP. There was slight improvement with pH rising to 7.16, PCO2 112, and PO2 67. Additional follow-up ABGs showed minimal change. I felt he was at significant risk of further decompensation. Contact was made with [facility] but no beds were available in ICU. Contact was made in with [facility] and he was accepted in transfer to ICU. Elective intubation was done with 7.5 ET tube without difficulty prior to discharge. - Time Spent with Patient Total time spent providing and/or coordinating discharge services: - Discharge Medications Home Medications: Albuterol Neb [Proventil Neb] 2.5 mg IH Q4HR PRN 05/23/15 [History] Albuterol Sulfate [Albuterol Inhaler] 2 puff IH Q4H PRN 05/23/15 [History] Gabapentin [Neurontin] 800 mg PO TID 05/23/15 [History] Levothyroxine [Synthroid] 50 mcg PO DAILY 05/23/15 [History] Loratadine [Claritin] 10 mg PO DAILY 05/23/15 [History] Melatonin [Melatin] 5 mg PO HS 05/23/15 [History] Farber-3S/Dha/Epa/Fish Oil [Fish Oil 1,200 mg Softgel] 1 cap PO DAILY 05/23/15 [ History] Topiramate [Topamax] 25 mg PO HS 05/23/15 [History] Cholecalciferol (D-3) [Vitamin D] 2,000 unit PO DAILY 06/04/16 [History] Ondansetron ODT [Zofran ODT] 4 mg SL Q12H PRN 11/15/16 [History] hydroCHLOROthiazide [Hydrochlorothiazide] 25 mg PO DAILY 03/09/17 [History] Metoprolol XL (24 HR) Succ [Toprol Xl] 25 mg PO BID 03/10/17 [History] Fexofenadine HCl [Allergy Relief] 180 mg PO DAILY 06/04/17 [History] Furosemide [Lasix] 40 mg PO DAILY 06/04/17 [History] diazePAM [Valium] 5 mg PO BID 06/04/17 [History] Insulin ASPART [Novolog Flexpen] 100 unit SQ TIDWM 5 Days #1 insuln.pen [Rx] Lactobacillus [Culturelle] 1 each PO BID #6 cap.sprink 08/14/17 [Rx] Celecoxib [Celebrex] 200 mg PO DAILY 09/20/17 [History] Fluticasone/Vilanterol [Breo Ellipta 200-25 Mcg INH] 1 each IH DAILY 09/20/17 [ History] Guaifenesin [Mucinex] 600 mg PO Q12H 09/20/17 [History] Ipratropium/Albuterol Neb [Duoneb] 3 ml IH Q6HR 09/20/17 [History] Omeprazole [PriLOSEC] 40 mg PO DAILY 09/20/17 [History] Pioglitazone HCl [Actos] 30 mg PO DAILY 09/20/17 [History] Allergies/Adverse Reactions: 3 Allergy/AdvReac Type Severity Reaction Status Date / Time Oxycodone [From Percocet] Allergy Anaphylaxis Verified 09/20/17 09:09 tramadol AdvReac Unknown TINGLING Verified 09/20/17 09:09 acetaminophen AdvReac Itching Verified 09/20/17 09:09 morphine AdvReac Hallucinati Verified 09/20/17 09:09 ng Date of admission: 09/21/17 10:23 Primary care physician: Dayday Ayala DO - Constitutional Vitals: Temp Pulse Resp BP Pulse Ox 97.7 F 71 28 90/49 92 09/22/17 10:14 09/22/17 10:14 09/22/17 10:14 09/22/17 10:14 09/22/17 10:14 - Patient Status Disposition: Transfer Short-Term Hosp Condition: Serious - Discharge Instructions Follow Up With: Dayday Ayala DO [Primary Care Provider] - 1 week
[2017-09-22] MEDS ORDERED: *HR* LORazepam 2 MG/ML VIAL IVP ONE (13:30)
== END 2017-09-22 13:50 | disposition short-term general hospital (02) | DRG 194 ==
LOC: INPPIK 09:07 → EMEROOPIK 09:07 → INPPIK 12:01
PROVIDERS: ADMIT Internal Medicine; ATTEND Internal Medicine